=== PATIENT | male | born 1945 | race Caucasian/White ===

== ENCOUNTER → 2016-04-25 | Outpatient (CLI) | payer BC ==
[~2016-04-25] MED LIST: ACET-1256 PO; ADVIN25/60 INH; ALBU1AER9 INH; ASPI81TA28 PO; CHOL1000 PO; CHOL100010 PO; COEN100C3 PO; DICL-201 PO; GUAI1TAB75 PO; IBUP-1050 PO; ISOS30TA3 PO; LEVO500T19 PO; LPT40 PO; MRLP17X PO; MULT-845 PO; OMEG10007 PO; PRED10TA PO; VNTHFA/IN INH
--- NOTE | 2016-04-25 11:12 | DIAGNOSTIC IMAGING REPORT ---
TWO VIEW CHEST CLINICAL HISTORY: COPD. Cough. FINDINGS: PA and lateral chest radiographs are compared to study dated 06/23/2015 and correlated with chest CT dated 10/11/2015. The cardiomediastinal silhouette is unremarkable. There is atherosclerotic calcification of the thoracic aorta. Emphysema and chronic interstitial thickening is similar to previous. There is no evidence of superimposed airspace consolidation or pleural effusion. There is no pneumothorax. The skeletal structures are osteopenic. There are healed right-sided rib fractures. IMPRESSION: Emphysema with no acute cardiopulmonary abnormality. Electronically signed by: Binh Bowie M.D. 04/25/2016 11:10 AM Dictated Date/Time: 04/25/2016 11:08 AM
== END | disposition home or self-care (01) ==
LOC: C.RADBBURG 10:55
PROVIDERS: ATTEND Internal Medicine Pulmonary Disease
DX: J44.9 Chronic obstructive pulmonary disease, unspecified (principal)

== ENCOUNTER → 2016-04-25 | Outpatient (CLI) | payer BC ==
[2016-04-25 16:33] LABS: INFLUENZA A PCR Neg for Influ A (NEG); INFLUENZA B PCR Neg for Influ B (NEG)
== END | disposition home or self-care (01) ==
LOC: C.LAB1850 13:36
PROVIDERS: ATTEND Internal Medicine Pulmonary Disease
DX: R06.02 Shortness of breath (principal)

== ENCOUNTER 2016-04-28 11:51 | Inpatient (IN) | payer BC, OTHER ==
[~2016-04-28] VITALS: Ht 170.2 cm; Wt 80.0 kg
[~2016-04-28 11:51] MED LIST changes: -CHOL1000 PO; -GUAI1TAB75 PO; -LEVO500T19 PO; -MRLP17X PO; -MULT-845 PO; -PRED10TA PO; -VNTHFA/IN INH
[2016-04-28] MEDS ORDERED: ALBUT/IPRATROP 3MG/0.5MG NEB 3 ML VIAL INH ONE (12:15)
--- NOTE | 2016-04-28 12:44 | DIAGNOSTIC IMAGING REPORT ---
CHEST ONE VIEW PORTABLE CLINICAL HISTORY: Atypical chest pain. Difficulty breathing. COMPARISON STUDY: 04/25/2016 FINDINGS: The cardiac and mediastinal contours remain stable. There is superior right hilar retraction. The findings raise the possibility of a prior right upper lobectomy. Please correlate with any history of prior surgery. There is no focal pulmonary consolidation. There are no pleural effusions. IMPRESSION: AP portable study. Stable superior right hilar retraction. No acute parenchymal consolidation Electronically signed by: Andrew Ramos M.D. 04/28/2016 12:42 PM Dictated Date/Time: 04/28/2016 12:37 PM
[2016-04-28 12:48] LABS: BASO % 0.1 %; BASO ABS # 0.01 K/uL (0-0.2); COMPLETE YES; EOS % 0.4 %; IG% 0.7 %; LYMPH ABS # 1.79 K/uL (1.2-3.4); MEAN CELL VOLUME 89.4 fL (80-100); MEAN CORPUSCULAR HEMOGLOBIN 31.3 pg (25-34); MEAN PLATELET VOLUME 9.7 fL (7.4-10.4); MONO % 7.1 %; NEUT % 78.7 %; PLATELET COUNT 250 K/uL (130-400); RED BLOOD COUNT 4.92 M/uL (4.7-6.1); WHITE BLOOD COUNT 13.81 K/uL (4.8-10.8)
[2016-04-28] MEDS ORDERED: GUAI1TAB75 PO (12:49)
[2016-04-28] MEDS ORDERED: PRED10TA PO (12:49)
[2016-04-28] MEDS ORDERED: LEVO500T19 PO (12:49)
[2016-04-28] MEDS ORDERED: VNTHFA/IN INH (12:50)
[2016-04-28] MEDS ORDERED: CHOL1000 PO (12:50)
[2016-04-28 12:52] VITALS: PULSE 68; O2SAT 94
[2016-04-28 12:58] LABS: BLOOD UREA NITROGEN 20 mg/dl (7-18); CALCIUM 9.5 mg/dl (8.5-10.1); CARBON DIOXIDE 28 mmol/L (21-32); CHLORIDE 105 mmol/L (98-107); GLUCOSE 93 mg/dl (70-99); SODIUM 142 mmol/L (136-145)
[2016-04-28 13:05] LABS: CKMB/CK RATIO 1.6 (0-3.0)
[2016-04-28] MEDS ORDERED: METHYLPREDNISOLONE 125 MG VIAL IV STA (14:44)
[2016-04-28] MEDS ORDERED: DOXYCYCLINE HYCLATE 100 MG CAP PO ONE (14:45)
[2016-04-28] MEDS ORDERED: LPT40 PO (15:18)
[2016-04-28] MEDS ORDERED: MRLP17X PO (15:18)
[2016-04-28] MEDS ORDERED: MULT-845 PO (15:18)
[2016-04-28] MEDS ORDERED: ACETAMINOPHEN 325 MG TAB PO PRN (15:30)
[2016-04-28] MEDS ORDERED: ONDANSETRON INJ 2 MG/ML 2 ML VIAL IV PRN (15:30)
[2016-04-28] MEDS ORDERED: ALBUT/IPRATROP 3MG/0.5MG NEB 3 ML VIAL INH PRN (15:45)
[2016-04-28] MEDS ORDERED: LEVALBUTEROL 1.25MG/3ML NEB INH PRN (15:45)
[2016-04-28] MEDS ORDERED: POLYETHYLENE (MIRALAX) 17 GM PACK PO PRN (15:45)
[2016-04-28 15:46] LABS: PROTHROMBIN TIME (PATIENT) 10.7 SECONDS (9.0-12.0)
--- NOTE | 2016-04-28 15:51 | History and Physical ---
History & Physical Date & Time of Service: Apr 28, 2016 at 15:19 Chief Complaint: Breathing/Pneumonia Primary Care Physician: Yaw Quiroz M.D.(CRISTIAN) History of Present Illness Source: patient, spouse ( at bedside), clinic records This is a 70 year old male with PMH of asthma, COPD, history of right sided empyema s/p resection in 1992, CAD, hx TIA, and other problems listed below who presents to the ED for cough and SOB. Patient states symptoms started 1 week ago with a head cold which drained to his lungs and is now having increased cough with yellow/ brown sputum and increased SOB from baseline. [place] [facility] [place] Jolanta Caballero PA-C on 04/23 and started on Azithromycin and prednisone taper. Patient was not feeling better on that regimen so was changed to Levaquin, which he has been taking since evening without relief. Patient reports SOB is worse when he lays flat and was having paroxysmal nocturnal dyspnea. For past few days he had to sleep upright on the cough. He also has increased INGRAM from baseline. Yesterday had chest pain only during cough. He denies fever, chills, diffuse myalgias, dizziness, nausea , vomiting, abdominal pain, diarrhea, urinary change. No recent travel or sick contact. Patient is not on home oxygen. He was hypoxic to 88% on RA in ER and improved on 2 liters nasal cannula. He was treated with Duoneb, Solu-medrol, and doxycycline in ER. 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 Status: Chronic (5) Family history: Hypertension Status: Chronic (6) Pulmonary nodule Status: Chronic (7) Syncope Status: Resolved (8) TIA (transient ischemic attack) Permanent Comment: 2004 Status: Chronic (9) Zenkers diverticulum Permanent Comment: s/p repair Status: Chronic Surgical Problems: (1) H/O eye surgery Status: Chronic (2) H/O hernia repair Status: Chronic (3) H/O prostate biopsy Status: Chronic (4) S/P bronchoscopy Status: Chronic (5) S/P knee replacement Permanent Comment: right Status: Chronic (6) S/P lobectomy of lung Permanent Comment: 1992 for empyema Status: Chronic (7) S/P partial colectomy Permanent Comment: at [facility] [place] for recurrent diverticulitis Status: Chronic Family History Hypertension Social History Smoking Status: Former Smoker Alcohol Use: none Drug Use: none Marital Status: Housing status: lives with family Occupational Status: employed Immunizations History of Influenza Vaccine: No Influenza Vaccine Date: Jan 14, 2007 History of Tetanus Vaccine?: Yes History of Pneumococcal: Yes History of Hepatitis B Vaccine: No Multi-Drug Resistant Organisms History of MDRO: No Allergies Coded Allergies: Hydrocodone (Verified Allergy, Mild, RASH, HIVES, 07/18/15) Home Medications Scheduled Aspirin (Aspirin Ec), 243 MG PO DAILY Atorvastatin (Atorvastatin Calcium), 40 MG PO HS Cholecalciferol (Vitamin D3), 1,000 UNITS PO BID Coenzyme Q10 (Ubidecarenone) (Co Q-10), 100 MG PO DAILY Fish Oil ([place]-3), 2 CAP PO QAM Fluticasone Prop/Salmeterol (Advair Diskus 250/50 60 Dose), 1 PUFFS INH BID Levofloxacin (Levaquin), 500 MG PO DAILY Multiple Vitamins W/ Minerals (Centrum Silver Adult 50+), 1 TAB PO DAILY Prednisone (Prednisone), 10 MG PO UD Scheduled PRN Albuterol Hfa (Ventolin Hfa), 2 PUFFS INH Q6H PRN for SOB/Wheezing Polyethylene (Miralax), 17 GM PO DAILY PRN for Constipation Review of Systems Ten point review of systems performed with pertinent positives and negatives noted in HPI. Physical Exam Vital Signs Date Time Temp Pulse Resp B/P Pulse Ox O2 Delivery O2 Flow Rate FiO2 04/28/16 14:41 92 20 88 Room Air 04/28/16 14:00 88 20 126/65 91 Room Air 04/28/16 13:04 65 04/28/16 12:52 68 14 94 Room Air 04/28/16 12:17 86 94 Room Air 04/28/16 11:57 36.8 73 20 152/89 93 Room Air General Appearance: WD/WN, no apparent distress, + pertinent finding (pleasant alert 70 year old male, not in distress, at bedside) Head: normocephalic, atraumatic Eyes: normal inspection, PERRL, EOMI ENT: normal ENT inspection, hearing grossly normal Neck: supple, trachea midline Respiratory/Chest: no respiratory distress, no accessory muscle use, + crackles , + pertinent finding (mild wheezing left upper lung field, course breath sounds , saturating well on 2L NC) Cardiovascular: regular rate, rhythm, no murmur Abdomen/GI: normal bowel sounds, non tender, soft Extremities/Musculoskelatal: normal inspection, normal capillary refill, no pedal edema Neurologic/Psych: alert, normal mood/affect, oriented x 3, + pertinent finding (grossly nonfocal) Skin: normal color, warm/dry Diagnostics Laboratory Results Results Past 24 Hours Test 04/28/16 12:23 04/28/16 12:32 Range/Units White Blood Count 13.81 4.8-10.8 K/uL Red Blood Count 4.92 4.7-6.1 M/uL Hemoglobin 15.4 14.0-18.0 g/dL Hematocrit 44.0 42-52 % Mean Corpuscular Volume 89.4 80-100 fL Mean Corpuscular Hemoglobin 31.3 25-34 pg Mean Corpuscular Hemoglobin Concent 35.0 32-36 g/dl Platelet Count 250 130-400 K/uL Mean Platelet Volume 9.7 7.4-10.4 fL Neutrophils (%) (Auto) 78.7 % Lymphocytes (%) (Auto) 13.0 % Monocytes (%) (Auto) 7.1 % Eosinophils (%) (Auto) 0.4 % Basophils (%) (Auto) 0.1 % Neutrophils # (Auto) 10.89 1.4-6.5 K/uL Lymphocytes # (Auto) 1.79 1.2-3.4 K/uL Monocytes # (Auto) 0.98 0.11-0.59 K/uL Eosinophils # (Auto) 0.05 0-0.5 K/uL Basophils # (Auto) 0.01 0-0.2 K/uL RDW Standard Deviation 44.1 36.4-46.3 fL RDW Coefficient of Variation 13.5 11.5-14.5 % Immature Granulocyte % (Auto) 0.7 % Immature Granulocyte # (Auto) 0.09 0.00-0.02 K/uL Sodium Level 142 136-145 mmol/L Potassium Level 4.0 3.5-5.1 mmol/L Chloride Level 105 98-107 mmol/L Carbon Dioxide Level 28 21-32 mmol/L Anion Gap 9.0 3-11 mmol/L Blood Urea Nitrogen 20 7-18 mg/dl Creatinine 1.00 0.60-1.40 mg/dl Est Creatinine Clear Calc Drug Dose 70.7 ml/min Estimated GFR () 88.6 Estimated GFR (Non- 76.5 BUN/Creatinine Ratio 20.0 10-20 Random Glucose 93 70-99 mg/dl Calcium Level 9.5 8.5-10.1 mg/dl Total Creatine Kinase 69 39-308 U/L Creatine Kinase MB 1.1 0.5-3.6 ng/ml Creatine Kinase MB Ratio 1.6 0-3.0 Troponin I < 0.015 0-0.045 ng/ml Pro-B-Type Natriuretic Peptide 62 0-900 pg/ml Bedside Lactic Acid Venous 1.27 0.90-1.70 mmol/L Microbiology Results 04/28/16 Blood Culture, Received Pending 04/28/16 Blood Culture, Received Pending Diagnostic Radiology CHEST ONE VIEW PORTABLE CLINICAL HISTORY: Atypical chest pain. Difficulty breathing. COMPARISON STUDY: 04/25/2016 FINDINGS: The cardiac and mediastinal contours remain stable. There is superior right hilar retraction. The findings raise the possibility of a prior right upper lobectomy. Please correlate with any history of prior surgery. There is no focal pulmonary consolidation. There are no pleural effusions. IMPRESSION: AP portable study. Stable superior right hilar retraction. No acute parenchymal consolidation EKG NSR, 66 bpm, no acute ischemic findings Impression Assessment and Plan ACUTE HYPOXIC RESPIRATORY FAILURE Secondary to COPD exacerbation Failed outpatient treatment with PO prednisone, Azithromycin, and Levaquin Was saturating 88% on RA (not on home O2), now improved on 2L NC CXR shows no consolidation or pulmonary edema; Pro-BNP WNL Treated with Duoneb, Solu-Medrol, and doxycycline in ER Blood cultures pending Check sputum culture and influenza PCR Will treat with empiric Zosyn, IV Solu-Medrol 40 MG TID, Duonebs QID and Xopenex PRN Continue Advair- advised to use on schedule rather than PRN Continue supplemental O2 per protocol If no improvement would consider CT scan and pulm consult ([facility]) CAD June 2015 showed severe CAD- medical management recommended Stable; no angina; troponin negative EKG- no evidence for ischemia Continue aspirin, statin DYSLIPIDEMIA Continue statin DVT PROPHYLAXIS Lovenox SQ DISPOSITION Followed with Dr. Randall who is retired; he has future appt with Dr. Quiroz in August 2016 [place] [facility] [place] [facility] [place] (Dr. Nickerson) Patient seen in collaboration with Dr. Whitman. Please see his addendum. Attending Note: Patient is a 70 yr old male with PMH of COPD, CAD, TIA, HLP presents with history of worsening productive cough and SOB since 1 week duration. Patient failed to respond to oral antibiotics and prednisone prescribed by his PCP. He states SOB is worse while lying down but denies any fever, chills, PND or pedal edema. BNP wnl. Also associated with chest pain on coughing. While in ED he was saturating at 88% on RA and currently 94 % on 2l NC. Physical Exam: Vitals signs as noted above General Appearance:Moderately built and nourished, no apparent distress Head: normocephalic, Atraumatic Eyes: normal inspection, EOMI, PERRLA, Anicteric Neck: supple, no JVD, Trachea midline Respiratory/Chest: Coarse breath sounds, b/l + crackles, minimal wheezing. No accessory muscle use Cardiovascular: S1, S2, NSR, Tachycardia, No murmur Abdomen/GI:Soft, Non tender, Bowel sounds present Extremities/Musculoskeletal:normal inspection, no calf tenderness, cyanosis, clubbing, edema Neurologic/Psych:AAOX3, grossly no focal neurological deficits Skin:normal color,warm Assessment and Plan: Acute Respiratory failure with hypoxia/hypercapnia Secondary to COPD Exacerbation Admit as inpatient Patient failed outpatient steroid and antibiotic therapy ( Azithromycin and Levaquin) CXR: no signs of consolidation Start on broad spectrum IV antibiotics IV solumedrol, bronchodilators Get Blood/sputum culture and gram strain Oxygen support per protocol Repeat labs in AM Will consider CT chest if no improvement I personally reviewed the record. Patient is interviewed and examined at bedside. Patient's care is coordinated with Bhargavi Durand PA-C. Please refer to the documentation above for details of patient's presentation and for discussion of other issues.
[2016-04-28] MEDS ORDERED: PIPERACILL/TAZOBAC CONSULT ACTIVE PRN (16:00)
[2016-04-28] MEDS ORDERED: PIPERACILL/TAZOBAC IV 3.375 GM in DEXTROSE 5% 100ML IV ONE (17:30)
[2016-04-28 17:59] LABS: INFLUENZA A PCR Neg for Influ A (NEG); INFLUENZA B PCR Neg for Influ B (NEG)
[2016-04-28 18:59] VITALS: Ht 170.2 cm; Wt 80.0 kg
--- NOTE | 2016-04-28 19:15 | EMERGENCY ROOM VISIT NOTE ---
History Report prepared by Noe: Jean Carlos Rajan Under the Supervision of: Dr. Lamberto Wells M.D. First contact with patient: 12:00 Chief Complaint: RESPIRATORY PROBLEMS Stated Complaint: BREATHING/PNEUMONIA Nursing Triage Summary: pt reports cough , congestion with sob with yellow mucus production that started 5 days ago , pt reports abx and prednisone started Fri pt reports pain in R lung with previous Lung operation 1992 History of Present Illness The patient is a 70 year old male who presents to the Emergency Room with complaints of persistent shortness of breath for the past five days. The patient 's symptoms are worse when he is laying down and with exertion. The patient also has congestion and a cough that produces yellow mucous. The patient experiences chest pain with heavy coughing, but does not have any chest pain at rest. He has not had any fevers. He also denies any syncope, abdominal pain, nausea, or vomiting. He was started on Levaquin 48 hours ago. He has been on Prednisone for one week. The patient had lung surgery in 1992, and has been prone to respiratory infections since. He has not had any recent surgeries or travel. The patient denies any history of blood clots. Source of History: patient Onset: five days ago Position: other (respiratory) Quality: other (short of breath) Timing: other (persistent) Modifying Factors (Worsening): exertion, other (laying down) Associated Symptoms: + cough, No abdominal pain, No chest pain, No fevers, No nausea, No vomiting Review of Systems See HPI for pertinent positives & negatives. A total of 10 systems reviewed and were otherwise negative. Past Medical & Surgical Medical Problems: (1) BPH (benign prostatic hypertrophy) (2) CAD (coronary artery disease) (3) Dyslipidemia (4) Empyema of lung (5) Family history: Hypertension (6) Pulmonary nodule (7) Right Knee DJD (8) Syncope (9) TIA (transient ischemic attack) (10) Zenkers diverticulum Surgical Problems: (1) H/O eye surgery (2) H/O hernia repair (3) H/O prostate biopsy (4) S/P bronchoscopy (5) S/P knee replacement (6) S/P lobectomy of lung (7) S/P partial colectomy Family History Hypertension Social History Smoking Status: Former Smoker Alcohol Use: none Drug Use: none Marital Status: Housing Status: lives with family Occupation Status: employed Current/Historical Medications Scheduled Aspirin (Aspirin Ec), 243 MG PO DAILY Atorvastatin (Atorvastatin Calcium), 40 MG PO HS Cholecalciferol (Vitamin D3), 1,000 UNITS PO BID Coenzyme Q10 (Ubidecarenone) (Co Q-10), 100 MG PO DAILY Fish Oil (Willet-3), 2 CAP PO QAM Fluticasone Prop/Salmeterol (Advair Diskus 250/50 60 Dose), 1 PUFFS INH BID Levofloxacin (Levaquin), 500 MG PO DAILY Multiple Vitamins W/ Minerals (Centrum Silver Adult 50+), 1 TAB PO DAILY Prednisone (Prednisone), 10 MG PO UD Scheduled PRN Albuterol Hfa (Ventolin Hfa), 2 PUFFS INH Q6H PRN for SOB/Wheezing Polyethylene (Miralax), 17 GM PO DAILY PRN for Constipation Allergies Coded Allergies: Hydrocodone (Verified Allergy, Mild, RASH, HIVES, 07/18/15) Physical Exam Vital Signs Date Time Temp Pulse Resp B/P Pulse Ox O2 Delivery O2 Flow Rate FiO2 04/28/16 14:41 92 20 88 Room Air 04/28/16 14:00 88 20 126/65 91 Room Air 04/28/16 13:04 65 04/28/16 12:52 68 14 94 Room Air 04/28/16 12:17 86 94 Room Air 04/28/16 11:57 36.8 73 20 152/89 93 Room Air Physical Exam GENERAL: Patient is uncomfortable appearing in mild distress. HEENT: No acute trauma, normocephalic atraumatic, mucous membranes moist, no nasal congestion, no scleral icterus. NECK: No stridor, no adenopathy, no meningismus, trachea is midline. LUNGS: Mild dyspnea. Diffuse crackles and wheezing in all lung interiano. HEART: Regular rate and rhythm. No murmurs, rubs, gallops appreciated. ABDOMEN: Soft, nontender, bowel sounds positive, no masses appreciated, no peritonitis. BACK: No midline tenderness, no CVA tenderness EXTREMITIES: Normal motion all extremities, no cyanosis, no edema. NEUROLOGIC: Alert and oriented, no acute motor or sensory deficits, no focal weakness, cranial nerves grossly intact. SKIN: No rash, no jaundice, no diaphoresis. Medical Decision & Procedures ER Provider Diagnostic Interpretation: X ray results are stated below per my interpretation and the radiologist's interpretation. CHEST ONE VIEW PORTABLE CLINICAL HISTORY: Atypical chest pain. Difficulty breathing. COMPARISON STUDY: 04/25/2016 FINDINGS: The cardiac and mediastinal contours remain stable. There is superior right hilar retraction. The findings raise the possibility of a prior right upper lobectomy. Please correlate with any history of prior surgery. There is no focal pulmonary consolidation. There are no pleural effusions. IMPRESSION: AP portable study. Stable superior right hilar retraction. No acute parenchymal consolidation Electronically signed by: Andrew Ramos M.D. 04/28/2016 12:42 PM Dictated Date/Time: 04/28/2016 12:37 PM Laboratory Results 04/28/16 12:23 Red Blood Count 4.92, Mean Corpuscular Volume 89.4, Mean Corpuscular Hemoglobin 31.3, Mean Corpuscular Hemoglobin Concent 35.0, Mean Platelet Volume 9.7, Neutrophils (%) (Auto) 78.7, Lymphocytes (%) (Auto) 13.0, Monocytes (%) (Auto) 7.1, Eosinophils (%) (Auto) 0.4, Basophils (%) (Auto) 0.1, Neutrophils # (Auto) 10.89, Lymphocytes # (Auto) 1.79, Monocytes # (Auto) 0.98, Eosinophils # (Auto) 0.05, Basophils # (Auto) 0.01 04/28/16 12:23 Test 04/28/16 12:23 04/28/16 12:32 White Blood Count 13.81 K/uL (4.8-10.8) Red Blood Count 4.92 M/uL (4.7-6.1) Hemoglobin 15.4 g/dL (14.0-18.0) Hematocrit 44.0 % (42-52) Mean Corpuscular Volume 89.4 fL (80-100) Mean Corpuscular Hemoglobin 31.3 pg (25-34) Mean Corpuscular Hemoglobin Concent 35.0 g/dl (32-36) Platelet Count 250 K/uL (130-400) Mean Platelet Volume 9.7 fL (7.4-10.4) Neutrophils (%) (Auto) 78.7 % Lymphocytes (%) (Auto) 13.0 % Monocytes (%) (Auto) 7.1 % Eosinophils (%) (Auto) 0.4 % Basophils (%) (Auto) 0.1 % Neutrophils # (Auto) 10.89 K/uL (1.4-6.5) Lymphocytes # (Auto) 1.79 K/uL (1.2-3.4) Monocytes # (Auto) 0.98 K/uL (0.11-0.59) Eosinophils # (Auto) 0.05 K/uL (0-0.5) Basophils # (Auto) 0.01 K/uL (0-0.2) RDW Standard Deviation 44.1 fL (36.4-46.3) RDW Coefficient of Variation 13.5 % (11.5-14.5) Immature Granulocyte % (Auto) 0.7 % Immature Granulocyte # (Auto) 0.09 K/uL (0.00-0.02) Prothrombin Time 10.7 SECONDS (9.0-12.0) Prothromb Time International Ratio 1.0 (0.9-1.1) Activated Partial Thromboplast Time 24.7 SECONDS (21.0-31.0) Partial Thromboplastin Ratio 1.0 Anion Gap 9.0 mmol/L (3-11) Est Creatinine Clear Calc Drug Dose 70.7 ml/min Estimated GFR () 88.6 Estimated GFR (Non- 76.5 BUN/Creatinine Ratio 20.0 (10-20) Calcium Level 9.5 mg/dl (8.5-10.1) Total Creatine Kinase 69 U/L (39-308) Creatine Kinase MB 1.1 ng/ml (0.5-3.6) Creatine Kinase MB Ratio 1.6 (0-3.0) Troponin I < 0.015 ng/ml (0-0.045) Pro-B-Type Natriuretic Peptide 62 pg/ml (0-900) Bedside Lactic Acid Venous 1.27 mmol/L (0.90-1.70) Laboratory results as reviewed by me. Medications Administered Medications (Trade) Dose Ordered Sig/Timothy Route Start Time Stop Time Status Last Admin Dose Admin Albuterol/ Ipratropium (Duoneb) 12 ml ONE ONCE INH 04/28/16 12:15 04/28/16 12:16 DC 04/28/16 12:52 12 ML Doxycycline Hyclate (Vibramycin Cap) 100 mg ONE ONCE PO 04/28/16 14:45 04/28/16 14:46 DC 04/28/16 14:51 100 MG Methylprednisolone Sodium Succinate (Solu-Medrol IV) 80 mg NOW STAT IV 04/28/16 14:44 04/28/16 14:46 DC 04/28/16 14:51 80 MG ECG Indication: SOB/dyspnea Rate (beats per minute): 66 Rhythm: normal sinus Findings: no acute ischemic change, no ectopy ED Course 1205: The patient was evaluated in room A2. A complete history and physical exam was performed. 1215: DuoNeb 12 ml INH. 1325: Checked on the patient. He and his are deciding if he should stay in the hospital or go home. 1350: The patient needs more time to decide if he will stay. 1444: Discussed the case with Bhargavi Durand PA-C, [facility]. The patient will be evaluated. 1444: Solu-Medrol 80 mg IV. 1445: Vibramycin cap 100 mg PO. Medical Decision Differential: Infectious, Reactive Airway Disease, Pneumonia, Pneumothorax, COPD , CHF, ACS, Pulmonary Embolism, MSK, GI, Dissection, amongst other etiologies entertained. 70 yr old male arrives with worsening SHOB and cough over last week despite adequate dosing of prednisone and Levaquin. Exam quite poor though oxygenating alright initially. Given hour long neb with mild improvement in breathing though O2 sats starting to drop. He is not septic and I do not feel there is acute bacteremia, however with his history will add on doxycycline. Symptoms consistent with previous episodes of same. With exam and this I do not feel that CT PE necessary at this time as he has had previous CT PEs when same symptoms which were negative. Patient will come in to medicine service and stable at that time. Consults Time Called: 1435 Consulting Physician: Bhargavi Durand PA-C, [facility] Returned Call: [phone]: Discussed the case with Bhargavi Durand PA-C, [facility]. The patient will be evaluated. Impression Primary Impression: Failure of outpatient treatment Additional Impression: Acute bronchitis Scribe Attestation The scribe's documentation has been prepared under my direction and personally reviewed by me in its entirety. I confirm that the note above accurately reflects all work, treatment, procedures, and medical decision making performed by me. Departure Information Dispostion Being Evaluated By Hospitalist Referrals Yaw Quiroz M.D.(CRISTIAN) (PCP) Patient Instructions [facility] Problem Qualifiers Additional Impression: Acute bronchitis Bronchitis organism: unspecified organism Qualified Codes: J20.9 - Acute bronchitis, unspecified
[2016-04-28] MEDS: BUDESONIDE 0.5 MG/2 ML VIAL (PULMICORT) INH SCH (19:42)
[2016-04-28] MEDS: ALBUT/IPRATROP 3MG/0.5MG NEB 3 ML VIAL INH SCH (19:42)
[2016-04-28 19:43] VITALS: PULSE 96; O2SAT 95
[2016-04-28] MEDS: CHOLECALCIFEROL 1000 INTER.UNIT TAB PO SCH (20:57)
[2016-04-28] MEDS: ATORVASTATIN 40 MG TAB PO SCH (20:57)
[2016-04-28] MEDS ORDERED: PIPERACILL/TAZOBAC IV 3.375 GM in DEXTROSE 5% 100ML 100 ML IV SCH (22:00)
[2016-04-28] MEDS: ENOXAPARIN 40 MG/0.4 ML SYR SQ SCH (22:25)
[2016-04-28] MEDS: PIPERACILL/TAZOBAC IV 3.375 GM in DEXTROSE 5% 100ML IV SCH (22:26)
[2016-04-28] MEDS: METHYLPREDNISOLONE IV 40 MG in SYRINGE 0 ML IV SCH (22:26)
[2016-04-29] VITALS (8 sets, daily range): BP systolic 105–133; BP diastolic 63–70; PULSE 81–99; TEMP 36.3–36.5; O2SAT 91–96
[2016-04-29] MEDS: PIPERACILL/TAZOBAC IV 3.375 GM in DEXTROSE 5% 100ML IV SCH ×3 (05:42→21:48)
[2016-04-29] MEDS: METHYLPREDNISOLONE IV 40 MG in SYRINGE 0 ML IV SCH ×3 (05:42→21:48)
[2016-04-29] MEDS: BUDESONIDE 0.5 MG/2 ML VIAL (PULMICORT) INH SCH ×2 (07:01→19:55)
[2016-04-29] MEDS: ALBUT/IPRATROP 3MG/0.5MG NEB 3 ML VIAL INH SCH ×4 (07:01→19:55)
[2016-04-29 08:46] LABS: COMPLETE YES; HEMATOCRIT 41.7 % (42-52); IG% 0.6 %; LYMPH ABS # 1.07 K/uL (1.2-3.4); MEAN CELL VOLUME 89.5 fL (80-100); MEAN CORPUSCULAR HEMOGLOBIN 31.8 pg (25-34); MEAN CORPUSCULAR HGB CONC 35.5 g/dl (32-36); MONO % 2.1 %; NEUT % 90.3 %; PLATELET COUNT 271 K/uL (130-400); RED BLOOD COUNT 4.66 M/uL (4.7-6.1); WHITE BLOOD COUNT 15.38 K/uL (4.8-10.8)
[2016-04-29] MEDS: OMEGA-3 (PURIFIED FISH OIL) 1 GM CAP PO SCH (08:49)
[2016-04-29] MEDS: CHOLECALCIFEROL 1000 INTER.UNIT TAB PO SCH ×2 (08:49→20:45)
[2016-04-29] MEDS: ASPIRIN 81 MG ECTAB PO SCH (08:49)
[2016-04-29] MEDS ORDERED: NON-FORMULARY MEDICATION (Coenzyme Q10 (Ubidecarenone) (Co Q-10) 100 MG) PO SCH (09:00)
[2016-04-29 09:12] LABS: BUN/CREATININE RATIO 24.5 (10-20); CALCIUM 9.4 mg/dl (8.5-10.1); CREATININE 1.1 mg/dl (0.60-1.40); POTASSIUM 3.9 mmol/L (3.5-5.1)
--- NOTE | 2016-04-29 15:12 | Progress Note ---
Internal Med Progress Note Date of Service: Apr 29, 2016. Provider Documentation: SUBJECTIVE: The patient was seen and examined Feels a lot better since admission Minimal SOB at rest No fever,chills OBJECTIVE: Vital Signs-as noted below Exam: General-Minimal distress at rest Eyes-normal ENT-normal Neck-supple Lungs-Decreased breath sound bilaterally ,minimal wheezing and minimal crackles at the bases Heart-Regular,no murmur Abdomen-Benign no masses,bowel sound present Extremities-No edema Neuro-AAOx3 Lab data as noted below. ASSESSMENT & PLAN: ACUTE HYPOXIC RESPIRATORY FAILURE SOB,Excessive use of Accessory muscles,Low saturation 88% on RA,inability to converse on presentation Secondary to COPD exacerbation Failed outpatient treatment with PO prednisone, Azithromycin, and Levaquin Was saturating 88% on RA (not on home O2), now improved on 2L NC CXR shows no consolidation or pulmonary edema; Pro-BNP WNL IV Solumedrol,Nebs and Oxygen administration Blood cultures ,Check sputum culture and Influenza PCR-negative IV Zosyn for now Continue Advair- advised to use on schedule rather than PRN Pulmonary consult-patient requested CAD June 2015 showed severe CAD- medical management recommended Stable; no angina; troponin negative EKG- no evidence for ischemia Continue aspirin, statin DYSLIPIDEMIA Continue statin DVT PROPHYLAXIS Lovenox SQ DISPOSITION Followed with Dr. Randall who is retired; he has future appt with Dr. Quiroz in August 2016 F/w [facility]m and [facility] [place] (Dr. Nickerson) Vital Signs: Date Time Temp Pulse Resp B/P Pulse Ox O2 Delivery O2 Flow Rate FiO2 04/29/16 14:41 36.5 81 20 127/63 91 04/29/16 11:14 99 16 95 Room Air 04/29/16 08:00 36.3 81 20 105/70 95 04/29/16 07:28 Room Air 04/29/16 07:01 94 16 95 Room Air 04/29/16 00:00 Room Air 2.0 04/28/16 19:43 96 16 95 Nasal Cannula 2.0 04/28/16 18:59 Nasal Cannula 2.0 Lab Results: Results Past 24 Hours Test 04/28/16 16:16 04/29/16 07:39 Range/Units Influenza Type A (RT-PCR) Neg for Influ A NEG Influenza Type B (RT-PCR) Neg for Influ B NEG White Blood Count 15.38 4.8-10.8 K/uL Red Blood Count 4.66 4.7-6.1 M/uL Hemoglobin 14.8 14.0-18.0 g/dL Hematocrit 41.7 42-52 % Mean Corpuscular Volume 89.5 80-100 fL Mean Corpuscular Hemoglobin 31.8 25-34 pg Mean Corpuscular Hemoglobin Concent 35.5 32-36 g/dl Platelet Count 271 130-400 K/uL Mean Platelet Volume 10.0 7.4-10.4 fL Neutrophils (%) (Auto) 90.3 % Lymphocytes (%) (Auto) 7.0 % Monocytes (%) (Auto) 2.1 % Eosinophils (%) (Auto) 0.0 % Basophils (%) (Auto) 0.0 % Neutrophils # (Auto) 13.90 1.4-6.5 K/uL Lymphocytes # (Auto) 1.07 1.2-3.4 K/uL Monocytes # (Auto) 0.32 0.11-0.59 K/uL Eosinophils # (Auto) 0.00 0-0.5 K/uL Basophils # (Auto) 0.00 0-0.2 K/uL RDW Standard Deviation 43.7 36.4-46.3 fL RDW Coefficient of Variation 13.4 11.5-14.5 % Immature Granulocyte % (Auto) 0.6 % Immature Granulocyte # (Auto) 0.09 0.00-0.02 K/uL Sodium Level 141 136-145 mmol/L Potassium Level 3.9 3.5-5.1 mmol/L Chloride Level 102 98-107 mmol/L Carbon Dioxide Level 22 21-32 mmol/L Anion Gap 17.0 3-11 mmol/L Blood Urea Nitrogen 27 7-18 mg/dl Creatinine 1.10 0.60-1.40 mg/dl Est Creatinine Clear Calc Drug Dose 64.2 ml/min Estimated GFR () 79.0 Estimated GFR (Non- 68.1 BUN/Creatinine Ratio 24.5 10-20 Random Glucose 126 70-99 mg/dl Calcium Level 9.4 8.5-10.1 mg/dl Microbiology Results 04/28/16 MRSA DNA Surveillance Screen - Final, Complete Specimen Negative for MRSA by DNA Probe
[2016-04-29] MEDS: ATORVASTATIN 40 MG TAB PO SCH (20:44)
[2016-04-29] MEDS: ENOXAPARIN 40 MG/0.4 ML SYR SQ SCH (20:45)
[2016-04-30] MEDS: PIPERACILL/TAZOBAC IV 3.375 GM in DEXTROSE 5% 100ML IV SCH (05:46)
[2016-04-30] MEDS: METHYLPREDNISOLONE IV 40 MG in SYRINGE 0 ML IV SCH (05:46)
[2016-04-30 06:00] LABS: BASO % 0.1 %; BASO ABS # 0.01 K/uL (0-0.2); COMPLETE YES; HEMATOCRIT 41.4 % (42-52); IG% 0.8 %; LYMPH ABS # 1.11 K/uL (1.2-3.4); MEAN CORPUSCULAR HGB CONC 34.8 g/dl (32-36); MONO % 3.1 %; PLATELET COUNT 264 K/uL (130-400); RED BLOOD COUNT 4.65 M/uL (4.7-6.1); WHITE BLOOD COUNT 18.62 K/uL (4.8-10.8)
[2016-04-30 06:31] LABS: BUN/CREATININE RATIO 26.5 (10-20); CREATININE 1.1 mg/dl (0.60-1.40); POTASSIUM 4.4 mmol/L (3.5-5.1)
[2016-04-30 07:05] VITALS: PULSE 84; O2SAT 97
[2016-04-30] MEDS: ALBUT/IPRATROP 3MG/0.5MG NEB 3 ML VIAL INH SCH ×3 (07:05→15:12)
[2016-04-30] MEDS: BUDESONIDE 0.5 MG/2 ML VIAL (PULMICORT) INH SCH (07:05)
[2016-04-30] MEDS: ASPIRIN 81 MG ECTAB PO SCH (07:39)
[2016-04-30] MEDS: OMEGA-3 (PURIFIED FISH OIL) 1 GM CAP PO SCH (07:39)
[2016-04-30] MEDS: CHOLECALCIFEROL 1000 INTER.UNIT TAB PO SCH (07:39)
[2016-04-30 08:27] VITALS: BP 145/69; PULSE 73; TEMP 36.4; O2SAT 93
[2016-04-30 11:12] VITALS: PULSE 77; O2SAT 95
--- NOTE | 2016-04-30 11:28 | Pulmonary Consultation ---
History General Date of Service: Apr 30, 2016. Stated Complaint: COUGH HPI The patient is a 70 year old male who presents to [facility] with complaints of COUGH. The patient's primary care provider is Yaw Quiroz M.D.(CRISTIAN). 70-yo male admitted 04/28/16 with CC cough and dyspnea. Prior records were reviewed. PMHx includes: right-sided empyema status post sleeve resection, chronic bronchitic asthma, Zenker's diverticulum status post repair and revision , pneumonia and pneumonitis, coronary artery disease, LLL pulmonary nodule ( stable 12/2007-10/2015), h/o ciro biopsy + fungal and bacterial smear (1997) on bronchoscopy 2004. Patient had been seen in the outpatient setting [employer]LYST with symptoms of cough, dyspnea, and wheeze. He was treated with antibiotic (azithromycin and levofloxacin) as well as Solumol and prednisone taper. Despite these modalities , he presented to [facility] with persistent and progressive symptoms. On evaluation vital signs notable for hypoxia: 88% RA improved on 2LPM. ProBNP: 62 , Thomas: negative. WBC: 13.81 on steroids. Influenza: negative. CXR describes stable superior right hilar retraction without infiltrate or signs of failure/ edema. He was admitted and received bronchodilators, steroid, and antibiotic ( current day #2 pip-tazo) with clinical improvement. Patient is a life-long [place] resident. 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 He denies prior service in the . He is a former smoker: 1ppd x 15-years, quit 1991. He lives with his in an older farm home. No mold or mildew. Heat: oil. They have several outdoor cats. Historian: patient Review of Systems Constitutional: denies: chills, fever Eyes: reports: no symptoms ENT: reports: nasal congestion, sore throat Cardiovascular: denies: chest pain, edema, palpitations Respiratory: reports: INGRAM, cough, shortness of breath, wheezing, denies: hemoptysis, stridor Gastrointestinal: reports: no symptoms Integumentary: reports: no symptoms, denies: rash Past Medical History Past Medical History: 1. Right-Sided Emphysema s/p sleeve resection - Right - 1992 2. Chronic Bronchitic Asthma 3. Large Zenkers Diverticulum s/p repair 4. Pneumonia 5. Coronary Artery Disease 6. Left Lower Lobe pulmonary (stable 12/2007-10/2015) 7. Bronchial Stenosis - Right 8. Diverticulosis s/p partial colectomy 9. Hypertension 10. Hyperlipidemia 11. Renal Cyst 12. Chronic Prostatitis 13. RUL pneumonitis Past Surgical History: 1. Bronchoscopy 2. Eye Surgery 3. Right thoracotomy with right lobectomy - Sleeve resection 4. Repair right inguinal hernia 5. Partial colectomy 6. Repair and revision of zenkers diverticulum 7. Prostate Biopsy 8. Right knee replacement Family History FH: CAD (coronary artery disease) MOTHER FH: colon cancer FATHER Hypertension Parent: Cancer (father) Social History Hx Tobacco Use In Past Year?: No (QUIT IN 1991) Smoking Status: Former Smoker Drug Use: none Marital status: Housing status: lives with family Occupational Status: employed Immunizations History of Influenza Vaccine: No Influenza Vaccine Date: Jan 14, 2007 History of Tetanus Vaccine?: Yes History of Pneumococcal: Yes History of Hepatitis B Vaccine: No History of MDRO History of MDRO: No Allergies Coded Allergies: Hydrocodone (Verified Allergy, Mild, RASH, HIVES, 07/18/15) Current Medications Reported Home Medications Medications Dose Route/Sig Max Daily Dose Days Date Category Dose Instructions Atorvastatin Calcium (Atorvastatin) 40 Mg Tab 40 Mg PO HS 04/28/16 Reported Miralax (Polyethylene) 17 Gm Pow 17 Gm PO DAILY PRN 04/28/16 Reported Centrum Silver Adult 50+ (Multiple Vitamins W/ Minerals) 1 Tab Tab 1 Tab PO DAILY 04/28/16 Reported Vitamin D3 (Cholecalciferol) 1,000 Unit Tab 1,000 Units PO BID 90 04/28/16 Reported Ventolin Hfa (Albuterol) 200 Puffs/[id number] Mcg Aers 2 Puffs INH Q6H PRN 04/28/16 Reported Prednisone 10 Mg Tab 10 Mg PO UD 04/28/16 Reported TAPERED DOSE. CURRENTLY TAKING 40MG DAILY X2 DAYS STARTING 04/28/16 Levaquin (Levofloxacin) 500 Mg Tab 500 Mg PO DAILY 10 04/28/16 Reported STARTED 04/25/16 Advair Diskus 250/50 60 Dose (Fluticasone Prop/Salmeterol) 1 Ea Aerp 1 Puffs INH BID 90 06/28/15 Reported Aspirin Ec (Aspirin) 81 Mg Tab 243 Mg PO DAILY 06/16/15 Reported 3 TABLET DOSE Co Q-10 (Coenzyme Q10 (Ubidecarenone)) 100 Mg Cap 100 Mg PO DAILY 06/03/13 Reported [place]-3 (Fish Oil) 1 Ea Cap 2 Cap PO QAM 06/03/13 Reported Physical Physical Exam Vital Signs: Date Time Temp Pulse Resp B/P Pulse Ox O2 Delivery O2 Flow Rate FiO2 04/30/16 08:27 36.4 73 20 145/69 93 04/30/16 08:00 Room Air 04/30/16 07:05 84 16 97 Room Air 04/30/16 01:14 Room Air 04/29/16 23:37 36.3 92 20 133/68 96 Room Air 04/29/16 21:00 96 Room Air 04/29/16 19:56 88 16 96 Room Air 04/29/16 15:32 98 16 96 Room Air 04/29/16 15:25 Room Air 04/29/16 14:41 36.5 81 20 127/63 91 04/29/16 11:14 99 16 95 Room Air Constitutional: WDWN male sitting on edge of hospital bed. NO acute distress Head: + facial symmetry Eyes: EOMi, PERRLA, no injection Mouth: moist mucous membranes. NO erythema, exudate or post-nasal gtt Respiratory: Non-labored respirations. No cough on exam. Coarse rales left base. No wheeze or rhonchi CV: RRR, no MRG. Warm and perfused peripherally. +2DP bilaterally with < 1s capillary refill MSK/Extremities: Moving and developed symmetrically. No peripheral edema. Neurologic: A&O. Good data recall. Appropriate affect. Diagnostics Labs Results Past 24 Hours Test 04/30/16 05:30 Range/Units White Blood Count 18.62 4.8-10.8 K/uL Red Blood Count 4.65 4.7-6.1 M/uL Hemoglobin 14.4 14.0-18.0 g/dL Hematocrit 41.4 42-52 % Mean Corpuscular Volume 89.0 80-100 fL Mean Corpuscular Hemoglobin 31.0 25-34 pg Mean Corpuscular Hemoglobin Concent 34.8 32-36 g/dl Platelet Count 264 130-400 K/uL Mean Platelet Volume 10.0 7.4-10.4 fL Neutrophils (%) (Auto) 90.0 % Lymphocytes (%) (Auto) 6.0 % Monocytes (%) (Auto) 3.1 % Eosinophils (%) (Auto) 0.0 % Basophils (%) (Auto) 0.1 % Neutrophils # (Auto) 16.77 1.4-6.5 K/uL Lymphocytes # (Auto) 1.11 1.2-3.4 K/uL Monocytes # (Auto) 0.58 0.11-0.59 K/uL Eosinophils # (Auto) 0.00 0-0.5 K/uL Basophils # (Auto) 0.01 0-0.2 K/uL RDW Standard Deviation 43.8 36.4-46.3 fL RDW Coefficient of Variation 13.5 11.5-14.5 % Immature Granulocyte % (Auto) 0.8 % Immature Granulocyte # (Auto) 0.15 0.00-0.02 K/uL Sodium Level 142 136-145 mmol/L Potassium Level 4.4 3.5-5.1 mmol/L Chloride Level 106 98-107 mmol/L Carbon Dioxide Level 26 21-32 mmol/L Anion Gap 10.0 3-11 mmol/L Blood Urea Nitrogen 29 7-18 mg/dl Creatinine 1.10 0.60-1.40 mg/dl Est Creatinine Clear Calc Drug Dose 64.2 ml/min Estimated GFR () 79.0 Estimated GFR (Non- 68.1 BUN/Creatinine Ratio 26.5 10-20 Random Glucose 134 70-99 mg/dl Calcium Level 9.0 8.5-10.1 mg/dl Impression Assessment and Plan 70-yo male with bronchitic asthma and prior right lobectomy presents with exacerbation. He is clinically improving on current regimen. 1. Transition to PO steroid today and continue nebulized bronchodilators 2. Continue pulmonary toilet (flutter) and ambulation throughout the halls encouraged 3. 2-step prior to discharge to assess ambulatory O2 needs 4. Advair 250/50: INH BID 5. Anticipate readiness for discharge today from pulmonary standpoint. Will follow-up in the outpatient office 1-2 weeks. If symptoms persist will arrange for bronchoscopy as outpatient.
--- NOTE | 2016-04-30 15:07 | Progress Note ---
Internal Med Progress Note Date of Service: Apr 30, 2016. Provider Documentation: SUBJECTIVE: The patient was seen and examined Feels a lot better since admission Minimal SOB at rest No fever,chills Much better today Ready to be discharged OBJECTIVE: Vital Signs-as noted below Exam: General-Minimal distress at rest Eyes-normal ENT-normal Neck-supple Lungs-Decreased breath sound bilaterally ,minimal wheezing and minimal crackles at the bases Heart-Regular,no murmur Abdomen-Benign no masses,bowel sound present Extremities-No edema Neuro-AAOx3 Lab data as noted below. ASSESSMENT & PLAN: ACUTE HYPOXIC RESPIRATORY FAILURE SOB,Excessive use of Accessory muscles,Low saturation 88% on RA,inability to converse on presentation Secondary to COPD exacerbation Failed outpatient treatment with PO prednisone, Azithromycin, and Levaquin Was saturating 88% on RA (not on home O2), now improved on 2L NC CXR shows no consolidation or pulmonary edema; Pro-BNP WNL IV Solumedrol,Nebs and Oxygen administration Blood cultures ,Check sputum culture and Influenza PCR-negative IV Zosyn for now Continue Advair- advised to use on schedule rather than PRN Pulmonary consult-appreciate input Advair added 2 steps before discharge-no need for oxygen Will give Doxy for 5 days CAD June 2015 showed severe CAD- medical management recommended Stable; no angina; troponin negative EKG- no evidence for ischemia Continue aspirin, statin DYSLIPIDEMIA Continue statin DVT PROPHYLAXIS Lovenox SQ DISPOSITION Followed with Dr. Randall who is retired; he has future appt with Dr. Quiroz in August 2016 F/w [facility] pulm and [facility] cardiology (Dr. Nickerson) Discharge home today Vital Signs: Date Time Temp Pulse Resp B/P Pulse Ox O2 Delivery O2 Flow Rate FiO2 04/30/16 11:12 77 16 95 Room Air 04/30/16 08:27 36.4 73 20 145/69 93 04/30/16 08:00 Room Air 04/30/16 07:05 84 16 97 Room Air 04/30/16 01:14 Room Air 04/29/16 23:37 36.3 92 20 133/68 96 Room Air 04/29/16 21:00 96 Room Air 04/29/16 19:56 88 16 96 Room Air 04/29/16 15:32 98 16 96 Room Air 04/29/16 15:25 Room Air Lab Results: Results Past 24 Hours Test 04/30/16 05:30 Range/Units White Blood Count 18.62 4.8-10.8 K/uL Red Blood Count 4.65 4.7-6.1 M/uL Hemoglobin 14.4 14.0-18.0 g/dL Hematocrit 41.4 42-52 % Mean Corpuscular Volume 89.0 80-100 fL Mean Corpuscular Hemoglobin 31.0 25-34 pg Mean Corpuscular Hemoglobin Concent 34.8 32-36 g/dl Platelet Count 264 130-400 K/uL Mean Platelet Volume 10.0 7.4-10.4 fL Neutrophils (%) (Auto) 90.0 % Lymphocytes (%) (Auto) 6.0 % Monocytes (%) (Auto) 3.1 % Eosinophils (%) (Auto) 0.0 % Basophils (%) (Auto) 0.1 % Neutrophils # (Auto) 16.77 1.4-6.5 K/uL Lymphocytes # (Auto) 1.11 1.2-3.4 K/uL Monocytes # (Auto) 0.58 0.11-0.59 K/uL Eosinophils # (Auto) 0.00 0-0.5 K/uL Basophils # (Auto) 0.01 0-0.2 K/uL RDW Standard Deviation 43.8 36.4-46.3 fL RDW Coefficient of Variation 13.5 11.5-14.5 % Immature Granulocyte % (Auto) 0.8 % Immature Granulocyte # (Auto) 0.15 0.00-0.02 K/uL Sodium Level 142 136-145 mmol/L Potassium Level 4.4 3.5-5.1 mmol/L Chloride Level 106 98-107 mmol/L Carbon Dioxide Level 26 21-32 mmol/L Anion Gap 10.0 3-11 mmol/L Blood Urea Nitrogen 29 7-18 mg/dl Creatinine 1.10 0.60-1.40 mg/dl Est Creatinine Clear Calc Drug Dose 64.2 ml/min Estimated GFR () 79.0 Estimated GFR (Non- 68.1 BUN/Creatinine Ratio 26.5 10-20 Random Glucose 134 70-99 mg/dl Calcium Level 9.0 8.5-10.1 mg/dl
[2016-04-30 15:12] VITALS: PULSE 85; O2SAT 93
--- NOTE | 2016-04-30 15:12 | Discharge Instructions ---
Discharge Instructions Admission Reason for Admission: COUGH Discharge Discharge Diagnosis / Problem: COPD exacerbation Discharge Goals Goal(s): Prevent Disease Progression Activity Recommendations Activity Limitations: resume your previous activity . Instructions / Follow-Up Instructions / Follow-Up Dr Quiroz on 05/06/16 at 9:50AM.Please make appointment with Pulmonary medicine in 2 weeks Current Hospital Diet Patient's current hospital diet: AHA Diet (Heart Healthy) Discharge Diet Recommended Diet: AHA Diet (Heart Healthy) Pending Studies Studies pending at discharge: no Medical Emergencies . Who to Call and When: Medical Emergencies: If at any time you feel your situation is an emergency, please call 911 immediately. . Non-Emergent Contact Non-Emergency issues call your: Primary Care Provider . . "Provider Documentation" section prepared by Aziza Villa. VTE Core Measure Inpt VTE Proph given/why not?: Enoxaparin (Lovenox)SQ
[2016-04-30 15:14] VITALS: BP 145/69; PULSE 77; TEMP 36.4; O2SAT 95
[2016-04-30 15:38] VITALS: BP 136/62; PULSE 81; TEMP 36.7; O2SAT 94
[2016-04-30] MEDS ORDERED: DOXYCYCLINE HYCLATE 100 MG CAP PO SCH (21:00)
[2016-04-30] MEDS ORDERED: FLUTICASONE/SALMETEROL 250/50 (ADVAIR) 14 PUFF/1 INHALER INH SCH (21:00)
--- NOTE | 2016-05-01 07:59 | Discharge Summary ---
Discharge Summary Admission Date: Apr 28, 2016 at 15:22 Discharge Date: Apr 30, 2016 Discharge Disposition: Home Principal Diagnosis: COPD exacerbation Secondary Diagnoses/Problems: Please see H&P Consultations: Pulmonary Medication Reconciliation Continued Medications: Albuterol Hfa (Ventolin Hfa) 200 Puffs/99623 Mcg Aers 2 PUFFS INH Q6H PRN for SOB/Wheezing, INHALER Aspirin (Aspirin Ec) 81 Mg Tab 243 MG PO DAILY 3 TABLET DOSE Atorvastatin (Atorvastatin Calcium) 40 Mg Tab 40 MG PO HS Cholecalciferol (Vitamin D3) 1,000 Unit Tab 1000 UNITS PO BID for 90 Days, TAB 3 Refills Coenzyme Q10 (Ubidecarenone) (Co Q-10) 100 Mg Cap 100 MG PO DAILY Fish Oil (Fisher-3) 1 Ea Cap 2 CAP PO QAM Fluticasone Prop/Salmeterol (Advair Diskus 250/50 60 Dose) 1 Ea Aerp 1 PUFFS INH BID for 90 Days, #3 INHALER 3 Refills Levofloxacin (Levaquin) 500 Mg Tab 500 MG PO DAILY for 10 Days, #10 TAB STARTED 04/25/16 Multiple Vitamins W/ Minerals (Centrum Silver Adult 50+) 1 Tab Tab 1 TAB PO DAILY Polyethylene (Miralax) 17 Gm Pow 17 GM PO DAILY PRN for Constipation Prednisone (Prednisone) 10 Mg Tab 10 MG PO UD, TAB TAPERED DOSE. CURRENTLY TAKING 40MG DAILY X2 DAYS STARTING 04/28/16 Admission Information HPI (per Admitting provider): This is a 70 year old male with PMH of asthma, COPD, history of right sided empyema s/p resection in 1992, CAD, hx TIA, and other problems listed below who presents to the ED for cough and SOB. Patient states symptoms started 1 week ago with a head cold which drained to his lungs and is now having increased cough with yellow/ brown sputum and increased SOB from baseline. Patient was seen by [facility] pulmonology Jolanta Caballero PA-C on 04/23 and started on Azithromycin and prednisone taper. Patient was not feeling better on that regimen so was changed to Levaquin, which he has been taking since evening without relief. Patient reports SOB is worse when he lays flat and was having paroxysmal nocturnal dyspnea. For past few days he had to sleep upright on the cough. He also has increased INGRAM from baseline. Yesterday had chest pain only during cough. He denies fever, chills, diffuse myalgias, dizziness, nausea , vomiting, abdominal pain, diarrhea, urinary change. No recent travel or sick contact. Patient is not on home oxygen. He was hypoxic to 88% on RA in ER and improved on 2 liters nasal cannula. He was treated with Duoneb, Solu-medrol, and doxycycline in ER. 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 Status: Chronic (5) Family history: Hypertension Status: Chronic (6) Pulmonary nodule Status: Chronic (7) Syncope Status: Resolved (8) TIA (transient ischemic attack) Permanent Comment: 2004 Status: Chronic (9) Zenkers diverticulum Permanent Comment: s/p repair Status: Chronic Surgical Problems: (1) H/O eye surgery Status: Chronic (2) H/O hernia repair Status: Chronic (3) H/O prostate biopsy Status: Chronic (4) S/P bronchoscopy Status: Chronic (5) S/P knee replacement Permanent Comment: right Status: Chronic (6) S/P lobectomy of lung Permanent Comment: 1992 for empyema Status: Chronic (7) S/P partial colectomy Permanent Comment: at [facility] for recurrent diverticulitis Status: Chronic Family History Hypertension Social History Smoking Status: Former Smoker Alcohol Use: none Drug Use: none Marital Status: Housing status: lives with family Occupational Status: employed Immunizations History of Influenza Vaccine: No Influenza Vaccine Date: Jan 14, 2007 History of Tetanus Vaccine?: Yes History of Pneumococcal: Yes History of Hepatitis B Vaccine: No Multi-Drug Resistant Organisms History of MDRO: No Allergies Coded Allergies: Hydrocodone (Verified Allergy, Mild, RASH, HIVES, 07/18/15) Home Medications Scheduled Aspirin (Aspirin Ec), 243 MG PO DAILY Atorvastatin (Atorvastatin Calcium), 40 MG PO HS Cholecalciferol (Vitamin D3), 1,000 UNITS PO BID Coenzyme Q10 (Ubidecarenone) (Co Q-10), 100 MG PO DAILY Fish Oil (Fisher-3), 2 CAP PO QAM Fluticasone Prop/Salmeterol (Advair Diskus 250/50 60 Dose), 1 PUFFS INH BID Levofloxacin (Levaquin), 500 MG PO DAILY Multiple Vitamins W/ Minerals (Centrum Silver Adult 50+), 1 TAB PO DAILY Prednisone (Prednisone), 10 MG PO UD Scheduled PRN Albuterol Hfa (Ventolin Hfa), 2 PUFFS INH Q6H PRN for SOB/Wheezing Polyethylene (Miralax), 17 GM PO DAILY PRN for Constipation Review of Systems Ten point review of systems performed with pertinent positives and negatives noted in HPI. Physical Exam Vital Signs Date Time Temp Pulse Resp B/P Pulse Ox O2 Delivery O2 Flow Rate FiO2 04/28/16 14:41 92 20 88 Room Air 04/28/16 14:00 88 20 126/65 91 Room Air 04/28/16 13:04 65 04/28/16 12:52 68 14 94 Room Air 04/28/16 12:17 86 94 Room Air 04/28/16 11:57 36.8 73 20 152/89 93 Room Air General Appearance: WD/WN, no apparent distress, + pertinent finding (pleasant alert 70 year old male, not in distress, at bedside) Head: normocephalic, atraumatic Eyes: normal inspection, PERRL, EOMI ENT: normal ENT inspection, hearing grossly normal Neck: supple, trachea midline Respiratory/Chest: no respiratory distress, no accessory muscle use, + crackles , + pertinent finding (mild wheezing left upper lung field, course breath sounds , saturating well on 2L NC) Cardiovascular: regular rate, rhythm, no murmur Abdomen/GI: normal bowel sounds, non tender, soft Extremities/Musculoskelatal: normal inspection, normal capillary refill, no pedal edema Neurologic/Psych: alert, normal mood/affect, oriented x 3, + pertinent finding (grossly nonfocal) Skin: normal color, warm/dry Diagnostics Laboratory Results Results Past 24 Hours Test 04/28/16 12:23 04/28/16 12:32 Range/Units White Blood Count 13.81 4.8-10.8 K/uL Red Blood Count 4.92 4.7-6.1 M/uL Hemoglobin 15.4 14.0-18.0 g/dL Hematocrit 44.0 42-52 % Mean Corpuscular Volume 89.4 80-100 fL Mean Corpuscular Hemoglobin 31.3 25-34 pg Mean Corpuscular Hemoglobin Concent 35.0 32-36 g/dl Platelet Count 250 130-400 K/uL Mean Platelet Volume 9.7 7.4-10.4 fL Neutrophils (%) (Auto) 78.7 % Lymphocytes (%) (Auto) 13.0 % Monocytes (%) (Auto) 7.1 % Eosinophils (%) (Auto) 0.4 % Basophils (%) (Auto) 0.1 % Neutrophils # (Auto) 10.89 1.4-6.5 K/uL Lymphocytes # (Auto) 1.79 1.2-3.4 K/uL Monocytes # (Auto) 0.98 0.11-0.59 K/uL Eosinophils # (Auto) 0.05 0-0.5 K/uL Basophils # (Auto) 0.01 0-0.2 K/uL RDW Standard Deviation 44.1 36.4-46.3 fL RDW Coefficient of Variation 13.5 11.5-14.5 % Immature Granulocyte % (Auto) 0.7 % Immature Granulocyte # (Auto) 0.09 0.00-0.02 K/uL Sodium Level 142 136-145 mmol/L Potassium Level 4.0 3.5-5.1 mmol/L Chloride Level 105 98-107 mmol/L Carbon Dioxide Level 28 21-32 mmol/L Anion Gap 9.0 3-11 mmol/L Blood Urea Nitrogen 20 7-18 mg/dl Creatinine 1.00 0.60-1.40 mg/dl Est Creatinine Clear Calc Drug Dose 70.7 ml/min Estimated GFR () 88.6 Estimated GFR (Non- 76.5 BUN/Creatinine Ratio 20.0 10-20 Random Glucose 93 70-99 mg/dl Calcium Level 9.5 8.5-10.1 mg/dl Total Creatine Kinase 69 39-308 U/L Creatine Kinase MB 1.1 0.5-3.6 ng/ml Creatine Kinase MB Ratio 1.6 0-3.0 Troponin I < 0.015 0-0.045 ng/ml Pro-B-Type Natriuretic Peptide 62 0-900 pg/ml Bedside Lactic Acid Venous 1.27 0.90-1.70 mmol/L Microbiology Results 04/28/16 Blood Culture, Received Pending 04/28/16 Blood Culture, Received Pending Diagnostic Radiology CHEST ONE VIEW PORTABLE CLINICAL HISTORY: Atypical chest pain. Difficulty breathing. COMPARISON STUDY: 04/25/2016 FINDINGS: The cardiac and mediastinal contours remain stable. There is superior right hilar retraction. The findings raise the possibility of a prior right upper lobectomy. Please correlate with any history of prior surgery. There is no focal pulmonary consolidation. There are no pleural effusions. IMPRESSION: AP portable study. Stable superior right hilar retraction. No acute parenchymal consolidation EKG NSR, 66 bpm, no acute ischemic findings Impression Assessment and Plan ACUTE HYPOXIC RESPIRATORY FAILURE Secondary to COPD exacerbation Failed outpatient treatment with PO prednisone, Azithromycin, and Levaquin Was saturating 88% on RA (not on home O2), now improved on 2L NC CXR shows no consolidation or pulmonary edema; Pro-BNP WNL Treated with Duoneb, Solu-Medrol, and doxycycline in ER Blood cultures pending Check sputum culture and influenza PCR Will treat with empiric Zosyn, IV Solu-Medrol 40 MG TID, Duonebs QID and Xopenex PRN Continue Advair- advised to use on schedule rather than PRN Continue supplemental O2 per protocol If no improvement would consider CT scan and pulm consult ([facility]) CAD June 2015 showed severe CAD- medical management recommended Stable; no angina; troponin negative EKG- no evidence for ischemia Continue aspirin, statin DYSLIPIDEMIA Continue statin DVT PROPHYLAXIS Lovenox SQ DISPOSITION Followed with Dr. Randall who is retired; he has future appt with Dr. Quiroz in August 2016 F/w [facility] pulm and [facility] cardiology (Dr. Nickerson) Patient seen in collaboration with Dr. Whitman. Please see his addendum. Attending Note: Patient is a 70 yr old male with PMH of COPD, CAD, TIA, HLP presents with history of worsening productive cough and SOB since 1 week duration. Patient failed to respond to oral antibiotics and prednisone prescribed by his PCP. He states SOB is worse while lying down but denies any fever, chills, PND or pedal edema. BNP wnl. Also associated with chest pain on coughing. While in ED he was saturating at 88% on RA and currently 94 % on 2l NC. Physical Exam: Vitals signs as noted above General Appearance:Moderately built and nourished, no apparent distress Head: normocephalic, Atraumatic Eyes: normal inspection, EOMI, PERRLA, Anicteric Neck: supple, no JVD, Trachea midline Respiratory/Chest: Coarse breath sounds, b/l + crackles, minimal wheezing. No accessory muscle use Cardiovascular: S1, S2, NSR, Tachycardia, No murmur Abdomen/GI:Soft, Non tender, Bowel sounds present Extremities/Musculoskeletal:normal inspection, no calf tenderness, cyanosis, clubbing, edema Neurologic/Psych:AAOX3, grossly no focal neurological deficits Skin:normal color,warm Assessment and Plan: Acute Respiratory failure with hypoxia/hypercapnia Secondary to COPD Exacerbation Admit as inpatient Patient failed outpatient steroid and antibiotic therapy ( Azithromycin and Levaquin) CXR: no signs of consolidation Start on broad spectrum IV antibiotics IV solumedrol, bronchodilators Get Blood/sputum culture and gram strain Oxygen support per protocol Repeat labs in AM Will consider CT chest if no improvement I personally reviewed the record. Patient is interviewed and examined at bedside. Patient's care is coordinated with Bhargavi Durand PA-C. Please refer to the documentation above for details of patient's presentation and for discussion of other issues. Physical Exam (per Admitting): General Appearance: WD/WN, no apparent distress, + pertinent finding Head: normocephalic, atraumatic Eyes: normal inspection, PERRL, EOMI ENT: normal ENT inspection, hearing grossly normal Neck: supple, trachea midline Respiratory/Chest: no respiratory distress, no accessory muscle use, + crackles, + pertinent finding Cardiovascular: regular rate, rhythm, no murmur Abdomen/GI: normal bowel sounds, non tender, soft Extremities/Musculoskelatal: normal inspection, normal capillary refill, no pedal edema Neurologic/Psych: alert, normal mood/affect, oriented x 3, + pertinent finding Skin: normal color, warm/dry Hospital Course ACUTE HYPOXIC RESPIRATORY FAILURE SOB,Excessive use of Accessory muscles,Low saturation 88% on RA,inability to converse on presentation Secondary to COPD exacerbation Failed outpatient treatment with PO prednisone, Azithromycin, and Levaquin Was saturating 88% on RA (not on home O2), now improved on 2L NC CXR shows no consolidation or pulmonary edema; Pro-BNP WNL IV Solumedrol,Nebs and Oxygen administration Blood cultures ,Check sputum culture and Influenza PCR-negative IV Zosyn for now Continue Advair- advised to use on schedule rather than PRN Pulmonary consult-appreciate input Advair added 2 steps before discharge-no need for oxygen Will give Doxy for 5 days CAD June 2015 showed severe CAD- medical management recommended Stable; no angina; troponin negative EKG- no evidence for ischemia Continue aspirin, statin DYSLIPIDEMIA Continue statin DVT PROPHYLAXIS Lovenox SQ DISPOSITION Followed with Dr. Randall who is retired; he has future appt with Dr. Quiroz in August 2016 F/w [facility] pulm and [facility] cardiology (Dr. Nickerson) Discharge home today Total time spent on discharge = 35 minutes This includes examination of the patient, discharge planning, medication reconciliation, and communication with other providers. Discharge Instructions Admission Reason for Admission: COUGH Discharge Discharge Diagnosis / Problem: COPD exacerbation Discharge Goals Goal(s): Prevent Disease Progression Activity Recommendations Activity Limitations: resume your previous activity . Instructions / Follow-Up Instructions / Follow-Up Dr Quiroz on 05/06/16 at 9:50AM.Please make appointment with Pulmonary medicine in 2 weeks Current Hospital Diet Patient's current hospital diet: AHA Diet (Heart Healthy) Discharge Diet Recommended Diet: AHA Diet (Heart Healthy) Pending Studies Studies pending at discharge: no Medical Emergencies . Who to Call and When: Medical Emergencies: If at any time you feel your situation is an emergency, please call 911 immediately. . Non-Emergent Contact Non-Emergency issues call your: Primary Care Provider . . "Provider Documentation" section prepared by Aziza Villa. VTE Core Measure Inpt VTE Proph given/why not?: Enoxaparin (Lovenox)SQ Additional Copies To Yaw Quiroz M.D.
== END 2016-04-30 15:54 | disposition home or self-care (01) | DRG 190 ==
LOC: ENRESERVDT → ENRESERVTM → C.EDB 11:54 → C.MS2W 15:22
PROVIDERS: ADMIT Internal Medicine; ATTEND Internal Medicine
DX: J44.1 Chronic obstructive pulmonary disease with (acute) exacerbation (principal); J96.01 Acute respiratory failure with hypoxia; J96.02 Acute respiratory failure with hypercapnia; J45.909 Unspecified asthma, uncomplicated; I25.10 Atherosclerotic heart disease of native coronary artery without angina pectoris; E78.5 Hyperlipidemia, unspecified; N40.0 Benign prostatic hyperplasia without lower urinary tract symptoms; Z90.2 Acquired absence of lung [part of]; Z90.49 Acquired absence of other specified parts of digestive tract; Z86.73 Personal history of transient ischemic attack (TIA), and cerebral infarction without residual deficits; Z96.651 Presence of right artificial knee joint; Z87.891 Personal history of nicotine dependence; Z79.82 Long term (current) use of aspirin; Z79.51 Long term (current) use of inhaled steroids; Z79.52 Long term (current) use of systemic steroids; Z79.899 Other long term (current) drug therapy

== ENCOUNTER → 2016-10-14 | Outpatient (CLI) | payer BC, OTHER ==
[~2016-10-14] MED LIST changes: -ACET-1256 PO; -ALBU1AER9 INH; +CHOL1000 PO; -CHOL100010 PO; -DICL-201 PO; -IBUP-1050 PO; -ISOS30TA3 PO; +LEVO500T19 PO; +MRLP17X PO; +MULT-845 PO; +PRED10TA PO; +VNTHFA/IN INH
== END | disposition home or self-care (01) ==
LOC: C.RDSM 08:57
PROVIDERS: ATTEND Physical Medicine & Rehabilitation Sports Medicine
DX: M25.561 Pain in right knee (principal)

== ENCOUNTER 2017-04-17 18:40 | Emergency (ER) | payer BC ==
[~2017-04-17] VITALS: Ht 170.2 cm; Wt 76.5 kg
[2017-04-17 19:00] VITALS: TEMP 36.7; Ht 170.2 cm; Wt 76.5 kg
[2017-04-17] MEDS ORDERED: TRAM-10 PO (19:52)
[2017-04-17] MEDS ORDERED: TADA5TAB11 PO (19:52)
[2017-04-17] MEDS ORDERED: LIDOCAINE/EPINEPHRINE 1% 20 ML VIAL INFIL ONE (20:00)
[2017-04-17] MEDS ORDERED: DIPHTHERIA/TETANUS/PERTUSSIS 0.5 ML SYR/VIAL IM. ONE (20:00)
--- NOTE | 2017-04-17 20:12 | EMERGENCY ROOM VISIT NOTE ---
ED Visit Note First contact with patient: 19:39 CHIEF COMPLAINT: Hand laceration HISTORY OF PRESENT ILLNESS: This 71-year-old male presents to the emergency department with complaint of laceration on his left hand. Patient states the hand got cut accidentally around 3 PM today, he states he was resting his hand on a fence post and one of his cows kicked the post, causing the laceration on his hand between his thumb finger. The bleeding stopped shortly after the injury and there is no weakness or numbness of the hand or fingers. He rates the pain as throbbing, 4/10. He has not tried any medications for the pain. He is unsure of his tetanus status, but thinks it may have been more than 10 years. He is left-hand dominant. No previous significant injuries to this hand. REVIEW OF SYSTEMS: A 6 point review of systems was reviewed with the patient with pertinent positives and negatives as per history of present illness. All else were negative. PMH: Reviewed in chart SOCIAL HISTORY: Patient lives at home. He denies tobacco use. PHYSICAL EXAM: Vital Signs: Reviewed Nurse's notes. CONSTITUTIONAL: Pleasant and cooperative. No acute distress. Well appearing and well nourished. HEENT: Normocephalic, atraumatic. NECK: Supple, full active range of motion without discomfort. RESPIRATORY: Clear to auscultation bilaterally with no wheezing, crackles, rhonchi or stridor. Equal expansion bilaterally. CARDIOVASCULAR: Regular rate and rhythm with no murmurs, rubs or gallops. Normal peripheral perfusion. No edema. MUSCULOSKELETAL: Full range of motion of all joints without discomfort. INTEGUMENTARY: There is a 1.5 cm long laceration in the webspace between the left thumb and palm of the hand. The edges gape apart with traction. There is no foreign material in the wound and it looks clean. There is no active bleeding. No deep structures such as tendons or nerves are seen in the base of the wound. Extension and flexion of all the fingers is full and strong. Sensation to pain and light touch is intact. NEUROLOGIC: Alert and oriented X 4 with normal affect. EMERGENCY DEPARTMENT COURSE: I examined the patient. Exam findings consistent with a superficial laceration, however it appears deep enough for closure. There are no involved tendons, blood vessels, or nerves apparent on exam. Patient has full motor function and sensation intact. Patient's tetanus was updated today. I obtained verbal consent from the patient to perform the procedure. Using sterile technique, saline and Betadine cleansing, and 1% lidocaine with epinephrine anesthesia, the laceration was irrigated with saline and then repaired with 3, 5-0 nylon sutures. Hemostasis was achieved. The patient tolerated the procedure well with no known complications. The hand was then bandaged with bacitracin and sterile dressing. Patient was instructed on worrisome symptoms to watch for, as well as wound care and follow-up, he verbalized understanding. The patient was discharged home in stable condition and ambulatory. Medication Reconciliation: I attest that I have personally reviewed the patient' s current medication list. Blood pressure screening: The patient was found to have an elevated blood pressure and was referred to their primary doctor for recheck and further treatment. 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 Status: Chronic (5) Family history: Hypertension Status: Chronic (6) Pulmonary nodule Status: Chronic (7) Syncope Status: Resolved (8) TIA (transient ischemic attack) Permanent Comment: 2004 Status: Chronic (9) Zenkers diverticulum Permanent Comment: s/p repair Status: Chronic Surgical Problems: (1) H/O eye surgery Status: Chronic (2) H/O hernia repair Status: Chronic (3) H/O prostate biopsy Status: Chronic (4) S/P bronchoscopy Status: Chronic (5) S/P knee replacement Permanent Comment: right Status: Chronic (6) S/P lobectomy of lung Permanent Comment: 1992 for empyema Status: Chronic (7) S/P partial colectomy Permanent Comment: at [facility] [place] for recurrent diverticulitis Status: Chronic Current/Historical Medications Scheduled Aspirin (Aspirin Ec), 243 MG PO DAILY Atorvastatin (Lipitor), 40 MG PO HS Cholecalciferol (Vitamin D3), 1,000 UNITS PO BID Coenzyme Q10 (Ubidecarenone) (Co Q-10), 100 MG PO DAILY Fish Oil (Ortley-3), 2 CAP PO QAM Multiple Vitamins W/ Minerals (Centrum Silver Adult 50+), 1 TAB PO DAILY Scheduled PRN Albuterol Hfa (Ventolin Hfa), 2 PUFFS INH Q6H PRN for SOB/Wheezing Fluticasone Prop/Salmeterol (Advair Diskus 250/50 60 Dose), 1 PUFFS INH BID PRN for Shortness of Breath Polyethylene (Miralax), 17 GM PO DAILY PRN for Constipation Tadalafil (Cialis), 5 MG PO UD PRN for PRN Tramadol (Ultram), 50 MG PO Q6H PRN for Pain Allergies Coded Allergies: Hydrocodone (Verified Allergy, Mild, RASH, HIVES, 04/17/17) Vital Signs Date Time Temp Pulse Resp B/P (MAP) Pulse Ox O2 Delivery O2 Flow Rate FiO2 04/17/17 22:48 56 150/70 94 04/17/17 19:00 36.7 59 18 162/83 95 Room Air Medications Administered Medications (Trade) Dose Ordered Sig/Timothy Route Start Time Stop Time Status Last Admin Dose Admin Lidocaine/ Epinephrine (Xylocaine/Epine 1% Inj) 20 ml ONE ONCE INFIL 04/17/17 20:00 04/17/17 20:01 DC 04/17/17 20:09 20 ML Diphtheria/ Pertussis/Tetanus Vacc (Adacel Inj) 0.5 ml ONCE ONCE IM. 04/17/17 20:00 04/17/17 20:01 DC 04/17/17 20:10 0.5 ML Departure Information Impression Primary Impression: Laceration of left hand Dispostion Home / Self-Care Condition GOOD Referrals Yaw Quiroz M.D. ([facility]) (PCP) Patient Instructions ED Laceration Hand, My [facility] Additional Instructions You have received 3 sutures on your left hand. These sutures are not dissolvable and must be removed by a health care provider. Please follow-up with your PCP, in urgent care, or return to the ER for suture removal in 8-10 days. Keep the wound clean and dry. Do not allow any crusting or dried blood to accumulate on sutures. If this occurs, use a 1:1 solution of hydrogen peroxide/ water on a Q-tip to clean the wound. Do not immerse your hand in water. Keep the wound covered and wear gloves when working in a dirty environment. Use an antibiotic ointment for 3-4 days, then let the wound dry. Ice and elevate for swelling and pain. Ibuprofen 600 mg and Tylenol 1000 mg every 8 hours as needed for pain. As with any laceration, there may be temporary or permanent nerve damage to the area. Please seek immediate medical attention for any signs of infection (increasing redness, pain, swelling, pus drainage, streaking up the arm, fever/chills). Work Instructions Return To Work: 2 days Problem Qualifiers Primary Impression: Laceration of left hand Encounter type: initial encounter Foreign body presence: without foreign body Qualified Codes: S61.412A - Laceration without foreign body of left hand , initial encounter
[2017-04-17 22:48] VITALS: BP 150/70; PULSE 56; O2SAT 94
== END 2017-04-17 22:48 | disposition home or self-care (01) ==
LOC: C.EDB 18:41 → C.EDD 22:48
DX: S61.412A Laceration without foreign body of left hand, initial encounter (principal); W55.89XA Other contact with other mammals, initial encounter; N40.0 Benign prostatic hyperplasia without lower urinary tract symptoms; I25.10 Atherosclerotic heart disease of native coronary artery without angina pectoris; E78.5 Hyperlipidemia, unspecified; I10 Essential (primary) hypertension; R91.1 Solitary pulmonary nodule; Z86.73 Personal history of transient ischemic attack (TIA), and cerebral infarction without residual deficits; Z96.651 Presence of right artificial knee joint; Z90.2 Acquired absence of lung [part of]; Z90.49 Acquired absence of other specified parts of digestive tract; Z79.82 Long term (current) use of aspirin; Z79.899 Other long term (current) drug therapy; Z23 Encounter for immunization

== ENCOUNTER → 2017-04-28 | Outpatient (CLI) | payer BC ==
[~2017-04-28] MED LIST changes: -LEVO500T19 PO; -PRED10TA PO; +TADA5TAB11 PO; +TRAM-10 PO
== END | disposition home or self-care (01) ==
LOC: C.RDSM 18:12
PROVIDERS: ATTEND Physical Medicine & Rehabilitation Sports Medicine
DX: M25.561 Pain in right knee (principal)

== ENCOUNTER 2017-06-04 19:35 | Emergency (ER) | payer BC ==
[~2017-06-04] VITALS: Ht 170.2 cm; Wt 79.2 kg
[~2017-06-04 19:35] MED LIST changes: -ASPI81TA28 PO; -TADA5TAB11 PO
[2017-06-04 19:40] VITALS: TEMP 36.8; Ht 170.2 cm; Wt 79.2 kg
[2017-06-04] MEDS ORDERED: TADA5TAB11 PO (19:52)
[2017-06-04 21:11] VITALS: O2SAT 98
[2017-06-04] MEDS: SODIUM CHLORIDE 0.9% 1000ML 1,000 ML IV SCH (21:58)
[2017-06-04] MEDS ORDERED: CHOL2000 PO (22:27)
[2017-06-04] MEDS ORDERED: ALBU18002 INH (22:27)
[2017-06-04] MEDS ORDERED: ULT50 PO (22:27)
[2017-06-04] MEDS ORDERED: FLM4 PO (22:27)
[2017-06-04] MEDS ORDERED: ZCR40 PO (22:27)
[2017-06-04 22:28] LABS: BASO % 1.1 %; BASO ABS # 0.07 K/uL (0-0.2); EOS ABS # 0.19 K/uL (0-0.5); HEMATOCRIT 40.6 % (42-52); IG# 0.01 K/uL (0.00-0.02); LYMPH % 29.2 %; LYMPH ABS # 1.82 K/uL (1.2-3.4); MEAN CORPUSCULAR HGB CONC 34.5 g/dl (32-36); MEAN PLATELET VOLUME 9.7 fL (7.4-10.4); MONO % 7.2 %; MONO ABS # 0.45 K/uL (0.11-0.59); NEUT % 59.3 %; NEUT ABS # 3.69 K/uL (1.4-6.5); PLATELET COUNT 222 K/uL (130-400); RED CELL DISTRIBUTION WIDTH CV 12.9 % (11.5-14.5); RED CELL DISTRIBUTION WIDTH SD 42.3 fL (36.4-46.3); WHITE BLOOD COUNT 6.23 K/uL (4.8-10.8)
[2017-06-04 22:39] LABS: PTT PATIENT 26.8 SECONDS (21.0-31.0)
--- NOTE | 2017-06-04 22:43 | DIAGNOSTIC IMAGING REPORT ---
CT HEAD WITHOUT CONTRAST (CT) CLINICAL HISTORY: Stroke COMPARISON STUDY: MRI the brain performed July 2009 TECHNIQUE: Axial CT of the brain is performed from the vertex to the skull base. IV contrast was not administered for this examination. A dose lowering technique was utilized adhering to the principles of ALARA. CT DOSE: 537.48 mGy.cm FINDINGS: No intra or extra-axial mass lesions are visualized. There is no CT evidence of acute cortical infarction. There is no evidence of midline shift. There is no acute hemorrhage. No calvarial fractures are visualized. There are patchy white matter hypodensities likely on a small vessel basis. There is no evidence of pathologic ventricular dilatation. There is no evidence of acute sinusitis IMPRESSION: No acute intracranial findings Electronically signed by: Andrew Ramos M.D. 06/04/2017 10:42 PM Dictated Date/Time: 06/04/2017 10:41 PM
[2017-06-04 22:46] LABS: BLOOD UREA NITROGEN 20 mg/dl (7-18); CARBON DIOXIDE 30 mmol/L (21-32); CREATININE 1.04 mg/dl (0.60-1.40); GLUCOSE 120 mg/dl (70-99); POTASSIUM 4.1 mmol/L (3.5-5.1); SODIUM 141 mmol/L (136-145)
[2017-06-04 22:51] LABS: CKMB 1.6 ng/ml (0.5-3.6)
[2017-06-04 22:59] VITALS: BP 126/69; PULSE 59; O2SAT 96
[2017-06-04] MEDS ORDERED: ASPI81TA28 PO (23:42)
--- NOTE | 2017-06-05 01:14 | EMERGENCY ROOM VISIT NOTE ---
History Report prepared by Noe: Lilly Angel Under the Supervision of: Dr. Ajay Torres D.O. First contact with patient: 21:46 Chief Complaint: NEURO SYMPTOMS Stated Complaint: LEFT HAND NUMBNESS, DOESN'T FEEL RT-HX MINI STROKE History of Present Illness The patient is a 71 year old male who presents to the Emergency Room with complaints of intermittent left hand numbness starting today. The numbness started in his ring finger and spread to his entire hand and up his wrist but no further. He notes that he was using his left hand a lot yesterday in a gripping motion. His right eye has been red and itchy without discharge. Symptoms were significant worse following performing the gripping motion were working. He states that he just doesn't feel right. He denies any weakness, headache, chest pain, SOB, nausea, vomiting, or diarrhea. He has a history of right knee replacement. He denies any other medical problems. He has no absolute no other complaints. No cough or runny nose. He denies any other weakness. Source of History: patient Onset: today Position: hand (left) Quality: numbness Timing: intermittent Associated Symptoms: No headache, No chest pain, No SOB, No nausea, No vomiting, No diarrhea, No weakness Review of Systems See HPI for pertinent positives & negatives. A total of 10 systems reviewed and were otherwise negative. Past Medical & Surgical Medical Problems: (1) BPH (benign prostatic hypertrophy) (2) CAD (coronary artery disease) (3) Dyslipidemia (4) Empyema of lung (5) Family history: Hypertension (6) Pulmonary nodule (7) Right Knee DJD (8) Syncope (9) TIA (transient ischemic attack) (10) Zenkers diverticulum Surgical Problems: (1) H/O eye surgery (2) H/O hernia repair (3) H/O prostate biopsy (4) S/P bronchoscopy (5) S/P knee replacement (6) S/P lobectomy of lung (7) S/P partial colectomy Family History FH: CAD (coronary artery disease) MOTHER FH: colon cancer FATHER Hypertension Social History Smoking Status: Former Smoker Alcohol Use: none Drug Use: none Marital Status: Housing Status: lives with family Occupation Status: employed Current/Historical Medications Scheduled Aspirin (Aspirin Ec), 243 MG PO DAILY Cholecalciferol (Vitamin D3), 2,000 INTER.UNIT PO DAILY Coenzyme Q10 (Ubidecarenone) (Co Q-10), 100 MG PO DAILY Fish Oil ([place]-3), 2 CAP PO QAM Multiple Vitamins W/ Minerals (Centrum Silver Adult 50+), 1 TAB PO DAILY Simvastatin (Simvastatin), 40 MG PO HS Tamsulosin HCl (Tamsulosin HCl), 0.4 MG PO DAILY Scheduled PRN Albuterol Sulfate (Proair Respiclick), 2 PUFFS INH Q4H PRN for SOB/Wheezing Fluticasone Prop/Salmeterol (Advair Diskus 250/50 60 Dose), 1 PUFF INH BID PRN for Shortness of Breath Polyethylene (Miralax), 17 GM PO DAILY PRN for Constipation Tadalafil (Cialis), 5 MG PO UD PRN for PRN Tramadol HCl (Tramadol HCl), 50 MG PO Q6H PRN for Pain Allergies Coded Allergies: Hydrocodone (Verified Allergy, Mild, RASH, HIVES, 04/17/17) Physical Exam Vital Signs Date Time Temp Pulse Resp B/P (MAP) Pulse Ox O2 Delivery O2 Flow Rate FiO2 06/04/17 22:59 59 16 126/69 96 Room Air 06/04/17 21:16 56 06/04/17 21:11 98 Room Air 06/04/17 21:10 56 133/70 98 Room Air 06/04/17 19:40 36.8 65 18 148/79 96 Room Air Physical Exam GENERAL: Sitting up in bed, alert, well appearing, well nourished, no distress, non-toxic EYE EXAM: normal conjunctiva. PERRL and EOM's intact. OROPHARYNX: no exudate, no erythema, lips, buccal mucosa, and tongue normal and mucous membranes are moist NECK: supple, no nuchal rigidity, no adenopathy, non-tender LUNGS: Clear to auscultation. Normal chest wall mechanics HEART: no murmurs, S1 normal and S2 normal ABDOMEN: abdomen soft, non-tender, normo-active bowel sounds, no masses, no rebound or guarding. BACK: Back is symmetrical on inspection and there is no deformity, no midline tenderness, no CVA tenderness. SKIN: no rashes and no bruising UPPER EXTREMITIES: positive Tinel's sign of left wrist. LOWER EXTREMITIES: No pitting edema. NEURO EXAM: Normal sensorium, cranial nerves II-XII intact, normal speech, no weakness of arms, no weakness of legs. No drift. Finger to nose intact. Gross sensation intact. Medical Decision & Procedures ER Provider Diagnostic Interpretation: Radiology results as stated below per my review and the radiologist's interpretation: CT HEAD WITHOUT CONTRAST (CT) CLINICAL HISTORY: Stroke COMPARISON STUDY: MRI the brain performed July 2009 TECHNIQUE: Axial CT of the brain is performed from the vertex to the skull base. IV contrast was not administered for this examination. A dose lowering technique was utilized adhering to the principles of ALARA. CT DOSE: 537.48 mGy.cm FINDINGS: No intra or extra-axial mass lesions are visualized. There is no CT evidence of acute cortical infarction. There is no evidence of midline shift. There is no acute hemorrhage. No calvarial fractures are visualized. There are patchy white matter hypodensities likely on a small vessel basis. There is no evidence of pathologic ventricular dilatation. There is no evidence of acute sinusitis IMPRESSION: No acute intracranial findings Electronically signed by: Andrew Ramos M.D. 06/04/2017 10:42 PM Dictated Date/Time: 06/04/2017 10:41 PM Laboratory Results 06/04/17 22:15 Red Blood Count 4.51, Mean Corpuscular Volume 90.0, Mean Corpuscular Hemoglobin 31.0, Mean Corpuscular Hemoglobin Concent 34.5, Mean Platelet Volume 9.7, Neutrophils (%) (Auto) 59.3, Lymphocytes (%) (Auto) 29.2, Monocytes (%) (Auto) 7.2, Eosinophils (%) (Auto) 3.0, Basophils (%) (Auto) 1.1, Neutrophils # (Auto) 3.69, Lymphocytes # (Auto) 1.82, Monocytes # (Auto) 0.45, Eosinophils # (Auto) 0.19, Basophils # (Auto) 0.07 06/04/17 22:15 Test 06/04/17 22:11 06/04/17 22:15 Bedside Glucose 122 mg/dl (70-99) White Blood Count 6.23 K/uL (4.8-10.8) Red Blood Count 4.51 M/uL (4.7-6.1) Hemoglobin 14.0 g/dL (14.0-18.0) Hematocrit 40.6 % (42-52) Mean Corpuscular Volume 90.0 fL (80-100) Mean Corpuscular Hemoglobin 31.0 pg (25-34) Mean Corpuscular Hemoglobin Concent 34.5 g/dl (32-36) Platelet Count 222 K/uL (130-400) Mean Platelet Volume 9.7 fL (7.4-10.4) Neutrophils (%) (Auto) 59.3 % Lymphocytes (%) (Auto) 29.2 % Monocytes (%) (Auto) 7.2 % Eosinophils (%) (Auto) 3.0 % Basophils (%) (Auto) 1.1 % Neutrophils # (Auto) 3.69 K/uL (1.4-6.5) Lymphocytes # (Auto) 1.82 K/uL (1.2-3.4) Monocytes # (Auto) 0.45 K/uL (0.11-0.59) Eosinophils # (Auto) 0.19 K/uL (0-0.5) Basophils # (Auto) 0.07 K/uL (0-0.2) RDW Standard Deviation 42.3 fL (36.4-46.3) RDW Coefficient of Variation 12.9 % (11.5-14.5) Immature Granulocyte % (Auto) 0.2 % Immature Granulocyte # (Auto) 0.01 K/uL (0.00-0.02) Prothrombin Time 10.7 SECONDS (9.0-12.0) Prothromb Time International Ratio 1.0 (0.9-1.1) Activated Partial Thromboplast Time 26.8 SECONDS (21.0-31.0) Partial Thromboplastin Ratio 1.0 Anion Gap 5.0 mmol/L (3-11) Est Creatinine Clear Calc Drug Dose 61.8 ml/min Estimated GFR () 83.9 Estimated GFR (Non- 72.4 BUN/Creatinine Ratio 19.0 (10-20) Calcium Level 9.0 mg/dl (8.5-10.1) Magnesium Level 2.5 mg/dl (1.8-2.4) Total Creatine Kinase 98 U/L (39-308) Creatine Kinase MB 1.6 ng/ml (0.5-3.6) Creatine Kinase MB Ratio 1.6 (0-3.0) Troponin I < 0.015 ng/ml (0-0.045) Laboratory results per my review. Medications Administered Medications (Trade) Dose Ordered Sig/Timothy Route Start Time Stop Time Status Last Admin Dose Admin Sodium Chloride 1,000 ml @ 50 mls/hr Q20H IV 06/04/17 21:58 06/04/17 23:42 DC 06/04/17 21:58 50 MLS/HR ECG Per My Interpretation Indication: other Rate (beats per minute): 56 Rhythm: sinus bradycardia Findings: other (normal axis, no PVC) ED Course ED COURSE: Vital signs were reviewed and showed normal vitals. The patients medical record was reviewed The above diagnostic studies were performed and reviewed. ED treatments and interventions as stated above. 2152: The patient was evaluated in room B7. A complete history and physical examination was performed. 2157: NSS 1000 ml @ 50 mls/hr IV. 2257: Upon reevaluation, the patient notes that his numbness worsened after the exam. I discussed my findings with the patient and he understands and agrees with the treatment plan. Based on the patients age, coexisting illnesses, exam and lab findings the decision to treat as an outpatient was made. The patient remained stable while under my care. The patient appeared well at the time of discharge. Medical Decision Differential Diagnosis includes but is not limited to ischemic Stroke, hemorrhagic stroke, bells palsy, mass, neoplasm, migraine headache, seizure, subarachnoid hemorrhage, TIA, and transient global amnesia. Patient is a 71-year-old male that was working in performing a gripping motion. Following this he notes he started having tingling in his third and fourth digits of his left hand. When this worsened over progress to all of his digits and, approximately to his wrist did not go any further. No weakness. No headaches or change in vision. No chest pain shortness breath. No other weakness or numbness. CBC all BMP was unremarkable. Troponin was negative. He has no urinary symptoms. No upper respiratory symptoms to suggest cough or runny nose. Nothing to suggest influenza. CT head was negative. On exam I am able to reproduce the tingling and numbness in his hand as he has a positive Tinel sign. I do believe this is most consistent with carpal tunnel syndrome. He was updated bedside. He is placed in a wrist splint. He was discharged follow-up with PCP. Discussed with Pt concerning signs and symptoms to watch out for. Pt was instructed to follow up with their PCP and discussed with the patient their option to return to the ED at anytime for persistent or worsening symptoms. The appropriate anticipatory guidance and out-patient management, including indications for return to the emergency department, were explained at length to the patient and understood. Medication Reconcilliation Current Medication List: was personally reviewed by me Blood Pressure Screening Patient's blood pressure: Normal blood pressure Blood pressure disposition: Did not require urgent referral Impression Primary Impression: Carpal tunnel syndrome of left wrist Scribe Attestation The scribe's documentation has been prepared under my direction and personally reviewed by me in its entirety. I confirm that the note above accurately reflects all work, treatment, procedures, and medical decision making performed by me. Departure Information Dispostion Home / Self-Care Forms WORK / SCHOOL INSTRUCTIONS, HOME CARE DOCUMENTATION FORM, IMPORTANT VISIT INFORMATION Patient Instructions Carpal Tunnel Syndrome Prevent, My [facility], ED Splint [facility] Additional Instructions Please follow up with your primary care doctor with in the next 24 hours. Any worsening of your symptoms, please return to the ED immediately. This includes any fevers greater than 100.4, worsening pain, chest pain, shortness breath, weakness or numbness in your arms or legs or face, unable to eat or drink, or any other concerning signs or symptoms from your standpoint. Please take Tylenol or Motrin as needed for pain. These try not to overuse your right wrist.
== END 2017-06-04 23:15 | disposition home or self-care (01) ==
LOC: C.EDB 19:37
DX: G56.02 Carpal tunnel syndrome, left upper limb (principal); N40.0 Benign prostatic hyperplasia without lower urinary tract symptoms; I25.10 Atherosclerotic heart disease of native coronary artery without angina pectoris; E78.5 Hyperlipidemia, unspecified; Z86.73 Personal history of transient ischemic attack (TIA), and cerebral infarction without residual deficits; R55 Syncope and collapse; Z82.49 Family history of ischemic heart disease and other diseases of the circulatory system; Z87.891 Personal history of nicotine dependence; Z79.82 Long term (current) use of aspirin; Z88.5 Allergy status to narcotic agent

== ENCOUNTER 2017-07-12 11:01 | Emergency (ER) | payer BC ==
[~2017-07-12] VITALS: Ht 170.2 cm; Wt 78.0 kg
[~2017-07-12 11:01] MED LIST changes: +ALBU18002 INH; +ASPI81TA28 PO; -CHOL1000 PO; +CHOL2000 PO; +FLM4 PO; -LPT40 PO; +TADA5TAB11 PO; -TRAM-10 PO; +ULT50 PO; -VNTHFA/IN INH; +ZCR40 PO
[2017-07-12 11:03] VITALS: TEMP 36.8; Ht 170.2 cm; Wt 78.0 kg
[2017-07-12] MEDS ORDERED: ALBUT/IPRATROP 3MG/0.5MG NEB 3 ML VIAL INH STA (11:13)
--- NOTE | 2017-07-12 11:15 | EMERGENCY ROOM VISIT NOTE ---
History Report prepared by Noe: Du Sneed Under the Supervision of: Dr. Binh Hidalgo M.D. First contact with patient: 11:08 Chief Complaint: COUGH Stated Complaint: COUGHING,NOT FEELING WELL Nursing Triage Summary: pt here with prod cough x a few days. pt states hx of pneumonia many times, pt would like checked for that. pt states has been using neb at home. History of Present Illness The patient is a 71 year old male who presents to the Emergency Room with complaints of constant chest congestion for the past several days. The patient notes that his illness began as a sore throat, with the discomfort then migrating to his chest. The patient notes experiencing severe shortness of breath which is worsened with exertion. He reports a history of pneumonia, lung surgery, and COPD for which he has an inhaler & nebulizer at home. The patient denies using oxygen at home, or experiencing any vomiting/diarrhea. The patient' s reports that she has had a cold and cough for the past week. The patient states that he received his flu shot this year. Source of History: patient Onset: several days ago. Position: chest (congestion) Quality: other (congestion ) Timing: constant Modifying Factors (Worsening): exertion Associated Symptoms: + sorethroat (resolved ), + SOB, No vomiting, No diarrhea Note: Associated Symptoms: History of COPD, History of Pneumonia. Review of Systems See HPI for pertinent positives & negatives. A total of 10 systems reviewed and were otherwise negative. Past Medical & Surgical Medical Problems: (1) BPH (benign prostatic hypertrophy) (2) CAD (coronary artery disease) (3) Dyslipidemia (4) Empyema of lung (5) Family history: Hypertension (6) Pulmonary nodule (7) Right Knee DJD (8) Syncope (9) TIA (transient ischemic attack) (10) Zenkers diverticulum Surgical Problems: (1) H/O eye surgery (2) H/O hernia repair (3) H/O prostate biopsy (4) S/P bronchoscopy (5) S/P knee replacement (6) S/P lobectomy of lung (7) S/P partial colectomy Family History FH: CAD (coronary artery disease) MOTHER FH: colon cancer FATHER Hypertension Social History Smoking Status: Never Smoker Alcohol Use: none Drug Use: none Marital Status: Housing Status: lives with family Occupation Status: employed Current/Historical Medications Scheduled Acetaminophen (Tylenol), 1,000 MG PO UD Aspirin (Aspirin Ec), 243 MG PO HS Cholecalciferol (Vitamin D3), 2,000 INTER.UNIT PO QAM Coenzyme Q10 (Ubidecarenone) (Co Q-10), 100 MG PO HS Fish Oil ([place]-3), 1 CAP PO QAM Levofloxacin (Levaquin), 500 MG PO HS Multiple Vitamins W/ Minerals (Centrum Silver Adult 50+), 1 TAB PO QAM Prednisone (Prednisone), 10 MG PO TAPER DOSE Simvastatin (Simvastatin), 40 MG PO HS Scheduled PRN Albuterol Sulfate (Proair Respiclick), 2 PUFFS INH Q4H PRN for SOB/Wheezing Fluticasone Prop/Salmeterol (Advair Diskus 250/50 60 Dose), 1 PUFF INH BID PRN for Shortness of Breath Polyethylene (Miralax), 17 GM PO DAILY PRN for Constipation Tadalafil (Cialis), 5 MG PO UD PRN for PRN Tramadol HCl (Tramadol HCl), 50 MG PO Q6H PRN for Pain Allergies Coded Allergies: Hydrocodone (Verified Allergy, Mild, RASH, HIVES, 07/12/17) Physical Exam Vital Signs Date Time Temp Pulse Resp B/P (MAP) Pulse Ox O2 Delivery O2 Flow Rate FiO2 07/12/17 13:10 75 16 132/67 90 07/12/17 12:26 72 07/12/17 12:21 69 16 133/61 88 Room Air 07/12/17 11:36 70 17 123/70 99 Nebulizer 07/12/17 11:03 36.8 73 18 141/78 93 Room Air Physical Exam GENERAL: Patient is in no acute distress. HEENT: No acute trauma, normocephalic atraumatic, mucous membranes moist, no nasal congestion, no scleral icterus. No throat erythema or exudate. NECK: No stridor, no adenopathy, no meningismus, trachea is midline. LUNGS: Diminished breath sounds bilaterally. No respiratory distress. Breath sounds equal. Scattered wheezing bilaterally. HEART: Without murmurs gallops or rubs, regular rate and rhythm. ABDOMEN: Soft, nontender, bowel sounds positive, no hernias, no peritonitis. EXTREMITIES: No cyanosis or edema, full range of motion of all the joints without pain or difficulty, no signs for acute trauma. NEUROLOGIC: Oriented x 3, no acute motor or sensory deficits, no focal weakness. SKIN: No rash, no jaundice, no diaphoresis. Medical Decision & Procedures ER Provider Diagnostic Interpretation: Radiology results as stated below per my review and radiologist interpretation: CHEST ONE VIEW PORTABLE CLINICAL HISTORY: 71 years-old Male presenting with EVALUATE RESPIRATORY DISTRESS.DYSPNEA. TECHNIQUE: Portable upright AP view of the chest was obtained. COMPARISON: 04/28/2016. FINDINGS: Atherosclerosis of the aortic arch. Cardiac silhouette normal in size. The right lung is relatively radiolucent in comparison to the left. No focal opacity. No large effusion or pneumothorax. Osseous structures normal. Upper abdomen normal. IMPRESSION: 1. No acute cardiopulmonary disease. Electronically signed by: Nguyễn Cruz M.D. 07/12/2017 11:39 AM Dictated Date/Time: 07/12/2017 11:37 AM Laboratory Results 07/12/17 11:32 Red Blood Count 4.79, Mean Corpuscular Volume 91.4, Mean Corpuscular Hemoglobin 31.5, Mean Corpuscular Hemoglobin Concent 34.5, Mean Platelet Volume 9.7, Neutrophils (%) (Auto) 85.7, Lymphocytes (%) (Auto) 9.0, Monocytes (%) (Auto) 4.6, Eosinophils (%) (Auto) 0.2, Basophils (%) (Auto) 0.5, Neutrophils # (Auto) 5.26, Lymphocytes # (Auto) 0.55, Monocytes # (Auto) 0.28, Eosinophils # (Auto) 0.01, Basophils # (Auto) 0.03 07/12/17 11:32 Test 07/12/17 11:28 07/12/17 11:32 Influenza Type A Antigen Neg for Influ A (NEG) Influenza Type B Antigen Neg for Influ B (NEG) White Blood Count 6.13 K/uL (4.8-10.8) Red Blood Count 4.79 M/uL (4.7-6.1) Hemoglobin 15.1 g/dL (14.0-18.0) Hematocrit 43.8 % (42-52) Mean Corpuscular Volume 91.4 fL (80-100) Mean Corpuscular Hemoglobin 31.5 pg (25-34) Mean Corpuscular Hemoglobin Concent 34.5 g/dl (32-36) Platelet Count 187 K/uL (130-400) Mean Platelet Volume 9.7 fL (7.4-10.4) Neutrophils (%) (Auto) 85.7 % Lymphocytes (%) (Auto) 9.0 % Monocytes (%) (Auto) 4.6 % Eosinophils (%) (Auto) 0.2 % Basophils (%) (Auto) 0.5 % Neutrophils # (Auto) 5.26 K/uL (1.4-6.5) Lymphocytes # (Auto) 0.55 K/uL (1.2-3.4) Monocytes # (Auto) 0.28 K/uL (0.11-0.59) Eosinophils # (Auto) 0.01 K/uL (0-0.5) Basophils # (Auto) 0.03 K/uL (0-0.2) RDW Standard Deviation 43.3 fL (36.4-46.3) RDW Coefficient of Variation 13.0 % (11.5-14.5) Immature Granulocyte % (Auto) 0.0 % Immature Granulocyte # (Auto) 0.00 K/uL (0.00-0.02) Anion Gap 5.0 mmol/L (3-11) Est Creatinine Clear Calc Drug Dose 56.9 ml/min Estimated GFR () 75.9 Estimated GFR (Non- 65.5 BUN/Creatinine Ratio 15.5 (10-20) Calcium Level 9.2 mg/dl (8.5-10.1) Troponin I < 0.015 ng/ml (0-0.045) Laboratory results reviewed by me. Medications Administered Medications (Trade) Dose Ordered Sig/Timothy Route Start Time Stop Time Status Last Admin Dose Admin Albuterol/ Ipratropium (Duoneb) 3 ml NOW STAT INH 07/12/17 11:13 07/12/17 11:15 DC 07/12/17 11:32 3 ML ECG Per My Interpretation Indication: chest pain (congestion ) Rate (beats per minute): 66 Rhythm: normal sinus Findings: no ectopy, other (No PVCs) ED Course 1108: The patient was evaluated in room C3. A complete history and physical exam was performed. 1113: Ordered Duoneb 3ml INH 1235: I re-evaluated the patient. The nurses will conduct an ambulatory exam to evaluate his oxygen sat while walking. 1254: The patient did well on his ambulatory exam. Reevaluated the patient. Discussed results and discharge instructions: He verbalized understanding and agreement. The patient is ready for discharge. Medical Decision The patient is a 71 year old male who presents to the ED with complaints of cough. Differential diagnoses considered include influenza or flu like symptoms , bronchitis or pneumonia, congestive heart failure, pharyngitis, or cardiac ischemia. . There is no leukocytosis or concerning anemia. No significant electrolyte abnormality or kidney failure. Chest film does not show pneumonia, pneumothorax or CHF. Influenza testing was negative. EKG shows a normal sinus rhythm, no acute ischemia. Cardiac enzyme testing 1 is not consistent with acute cardiac injury. The patient was given a DuoNeb, he is doing well and feeling improved. He was walked around the ER, his O2 saturation dropped to about 89% but quickly rebounded to the low 90s, he did not feel dyspneic. Patient has acute bronchitis with a flare of his COPD. He is on Levaquin and prednisone, both of these were started in the last 24 hours. He will continue this medication and I will have him using his albuterol more frequently. If worsening, he will return. Medication Reconcilliation Current Medication List: was personally reviewed by me Blood Pressure Screening Patient's blood pressure: Elevated blood pressure Blood pressure disposition: Elevated BP felt to be situational Impression Primary Impression: Acute bronchitis Additional Impression: COPD exacerbation Scribe Attestation The scribe's documentation has been prepared under my direction and personally reviewed by me in its entirety. I confirm that the note above accurately reflects all work, treatment, procedures, and medical decision making performed by me. Departure Information Dispostion Home / Self-Care Referrals Yaw Quiroz M.D.(CRISTIAN) (PCP) Forms HOME CARE DOCUMENTATION FORM, IMPORTANT VISIT INFORMATION Patient Instructions My [facility] [email or web address] Additional Instructions meds as prescribed by your doctor albuterol inhaler or nebulizer every 4 hours see your doctor this week for a recheck return for worsening breathing or fever or if not improving no pneumonia on xray today Problem Qualifiers
[2017-07-12 11:40] LABS: BASO % 0.5 %; BASO ABS # 0.03 K/uL (0-0.2); EOS % 0.2 %; EOS ABS # 0.01 K/uL (0-0.5); HEMATOCRIT 43.8 % (42-52); HEMOGLOBIN 15.1 g/dL (14.0-18.0); LYMPH ABS # 0.55 K/uL (1.2-3.4); MEAN CELL VOLUME 91.4 fL (80-100); MEAN CORPUSCULAR HEMOGLOBIN 31.5 pg (25-34); MEAN CORPUSCULAR HGB CONC 34.5 g/dl (32-36); MEAN PLATELET VOLUME 9.7 fL (7.4-10.4); MONO % 4.6 %; MONO ABS # 0.28 K/uL (0.11-0.59); NEUT % 85.7 %; NEUT ABS # 5.26 K/uL (1.4-6.5); PLATELET COUNT 187 K/uL (130-400); RED CELL DISTRIBUTION WIDTH SD 43.3 fL (36.4-46.3); WHITE BLOOD COUNT 6.13 K/uL (4.8-10.8)
--- NOTE | 2017-07-12 11:40 | DIAGNOSTIC IMAGING REPORT ---
CHEST ONE VIEW PORTABLE CLINICAL HISTORY: 71 years-old Male presenting with EVALUATE RESPIRATORY DISTRESS.DYSPNEA. TECHNIQUE: Portable upright AP view of the chest was obtained. COMPARISON: 04/28/2016. FINDINGS: Atherosclerosis of the aortic arch. Cardiac silhouette normal in size. The right lung is relatively radiolucent in comparison to the left. No focal opacity. No large effusion or pneumothorax. Osseous structures normal. Upper abdomen normal. IMPRESSION: 1. No acute cardiopulmonary disease. Electronically signed by: Nguyễn Cruz M.D. 07/12/2017 11:39 AM Dictated Date/Time: 07/12/2017 11:37 AM
[2017-07-12] MEDS ORDERED: ACET-1256 PO (11:47)
[2017-07-12] MEDS ORDERED: PRED10TA PO (11:51)
[2017-07-12] MEDS ORDERED: LEVO1TAB33 PO (11:51)
[2017-07-12 12:00] LABS: INFLUENZA B ANTIGEN Neg for Influ B (NEG)
[2017-07-12 12:01] LABS: BLOOD UREA NITROGEN 18 mg/dl (7-18); CALCIUM 9.2 mg/dl (8.5-10.1); CARBON DIOXIDE 28 mmol/L (21-32); CREATININE 1.13 mg/dl (0.60-1.40); GLUCOSE 137 mg/dl (70-99); POTASSIUM 3.9 mmol/L (3.5-5.1); SODIUM 136 mmol/L (136-145)
[2017-07-12 13:10] VITALS: BP 132/67; PULSE 75; O2SAT 90
== END 2017-07-12 13:10 | disposition home or self-care (01) ==
LOC: C.EDB 11:02 → C.EDC 13:10
DX: J44.0 Chronic obstructive pulmonary disease with (acute) lower respiratory infection (principal); J20.9 Acute bronchitis, unspecified; N40.0 Benign prostatic hyperplasia without lower urinary tract symptoms; I25.10 Atherosclerotic heart disease of native coronary artery without angina pectoris; E78.5 Hyperlipidemia, unspecified; R91.1 Solitary pulmonary nodule; K22.5 Diverticulum of esophagus, acquired; Z96.659 Presence of unspecified artificial knee joint; Z90.2 Acquired absence of lung [part of]; Z90.49 Acquired absence of other specified parts of digestive tract; Z88.5 Allergy status to narcotic agent; Z82.49 Family history of ischemic heart disease and other diseases of the circulatory system; Z80.0 Family history of malignant neoplasm of digestive organs; Z79.82 Long term (current) use of aspirin

== ENCOUNTER → 2017-07-16 | Outpatient (CLI) | payer BC ==
[~2017-07-16] MED LIST changes: +ACET-1256 PO; -FLM4 PO; +LEVO1TAB33 PO; +PRED10TA PO
--- NOTE | 2017-07-16 13:35 | DIAGNOSTIC IMAGING REPORT ---
(CHEST FOR PE) ANGIO WITH CLINICAL HISTORY: 71 years-old Male presenting with ^SOB, COUGH, CHEST DISCOMFORT. TECHNIQUE: Multidetector CT angiography of the chest was performed after administration of intravenous contrast. 3-D volumetric and/or maximum intensity projection (MIP) images were subsequently reconstructed for review. IV contrast: 94 mL of Optiray 320. A dose lowering technique was used consistent with the principles of ALARA (as low as reasonably achievable). COMPARISON: 10/11/2015. CT DOSE (mGy.cm): The estimated cumulative dose is 482.31 mGycm. FINDINGS: Psychologist Social topogram: Unremarkable. Pulmonary vasculature: The study is adequate for assessment of the pulmonary vascular tree. No filling defect within the pulmonary arteries to suggest embolus. Main pulmonary artery is not enlarged. No flattening of the interventricular septum. No intracardiac filling defect. No reflux of contrast into the hepatic veins. Remaining chest: On soft tissue windows, normal thyroid and thoracic inlet. No axillary, supraclavicular, hilar, or mediastinal lymphadenopathy. Atherosclerosis of the aorta. Normal heart size. Coronary artery calcification. No pericardial or pleural effusion. Upper abdomen normal. On lung windows, the right lower lobe is hyperinflated. Severe volume loss of the right middle lobe, which has increased from prior exam. The right upper lobe is not apparent and may be surgically absent. Mild bronchial wall thickening diffusely. Motion artifact slightly degrades evaluation of lung parenchyma. Allowing for this, 4 mm groundglass nodule noted at the left upper lobe (series 4 image 248), unchanged since 2016. Patchy centrilobular groundglass opacities in the posterior basal right lower lobe. Central airways patent. On bone windows, old right posterior rib fractures evident. IMPRESSION: 1. No evidence of pulmonary embolus. 2. Groundglass centrilobular nodules in the posterior basal right lower lobe consistent with bronchiolitis, likely infectious bronchiolitis versus aspiration. 3. Severe volume loss in the right middle lobe, increased since prior. 4. The right upper lobe may be absent on a surgical basis. 5. Stable 3 mm left upper lobe groundglass nodule. Electronically signed by: Nguyễn Cruz M.D. 07/16/2017 1:34 PM Dictated Date/Time: 07/16/2017 1:23 PM
== END | disposition home or self-care (01) ==
LOC: C.CTS 12:40
PROVIDERS: ATTEND Physician Assistant
DX: R07.81 Pleurodynia (principal); R05 Cough

== ENCOUNTER → 2017-07-23 | Outpatient (CLI) | payer BC ==
[~2017-07-23] MED LIST changes: +DOXY100C2 PO; +MISCTAB27 PO
[2017-07-23 18:58] LABS: BASO % 0.1 %; BASO ABS # 0.01 K/uL (0-0.2); HEMATOCRIT 44.9 % (42-52); HEMOGLOBIN 15.4 g/dL (14.0-18.0); IG# 0.11 K/uL (0.00-0.02); LYMPH % 9.3 %; LYMPH ABS # 1.32 K/uL (1.2-3.4); MEAN CELL VOLUME 90.5 fL (80-100); MEAN CORPUSCULAR HGB CONC 34.3 g/dl (32-36); MEAN PLATELET VOLUME 10.2 fL (7.4-10.4); MONO % 2.6 %; MONO ABS # 0.37 K/uL (0.11-0.59); NEUT % 87.2 %; NEUT ABS # 12.37 K/uL (1.4-6.5); PLATELET COUNT 334 K/uL (130-400); RED CELL DISTRIBUTION WIDTH CV 13.2 % (11.5-14.5); WHITE BLOOD COUNT 14.18 K/uL (4.8-10.8)
[2017-07-23 19:10] LABS: PTT PATIENT 24.2 SECONDS (21.0-31.0)
[2017-07-23 19:19] LABS: BLOOD UREA NITROGEN 24 mg/dl (7-18); CALCIUM 8.9 mg/dl (8.5-10.1); CARBON DIOXIDE 27 mmol/L (21-32); CREATININE 1.07 mg/dl (0.60-1.40); GLUCOSE 205 mg/dl (70-99); POTASSIUM 4.6 mmol/L (3.5-5.1); SODIUM 139 mmol/L (136-145)
== END | disposition home or self-care (01) ==
LOC: C.LAB 17:31
PROVIDERS: ATTEND Physician Assistant
DX: R05 Cough (principal)

== ENCOUNTER → 2017-07-28 | Day surgery (SDC) | payer BC ==
[~2017-07-28] VITALS: Ht 170.2 cm; Wt 77.3 kg
[~2017-07-28] MED LIST changes: +FENTANYL CITRATE INJ 50 MCG/1 ML 2 ML VIAL IV ONE; +LIDOCAINE 4% INH SOLN 4 ML BTL TOP ONE; +LIDOCAINE HCL 2% LOCAL 50ML VIAL INSTIL ONE; +LIDOCAINE VISCOUS 2% 100ML TOP ONE; +MIDAZOLAM HCL 5 MG/ML 1 ML VIAL IV ONE
[2017-07-28 06:53] VITALS: BP 125/71; PULSE 55; TEMP 36.5; O2SAT 97; Ht 170.2 cm; Wt 77.3 kg
--- NOTE | 2017-07-28 08:14 | Pre Sedation Assessment ---
Pre Sedation Assessment General Date of Sedation: Jul 28, 2017. Vital Signs Past 12 Hours Date Time Temp Pulse Resp B/P (MAP) Pulse Ox O2 Delivery O2 Flow Rate FiO2 07/28/17 06:53 36.5 55 18 125/71 (89) 97 Room Air Pre-Sedation Airway Assessment Smoking Status: Former Smoker Hx of Sleep Apnea: No Short Thick Neck: No Thyro-mental Distance: > 3 Finger Breadths Oral Cavity: Capped Teeth Mallampati Classification: Class II ASA Classification: Class II NPO Status Date of Last Intake of Fluids: Jul 27, 2017 Time of Last Intake of Fluids: 2099 Date of Last Intake of Solids: Jul 27, 2017 Time of Last Intake of Solids: 2099 Procedure Planning Contraindications for Sedation: None Current Medications Reviewed: Yes Notes The planned sedation has been discussed with the patient. Informed Consent was obtained. I have identified the patient, determined the appropriateness of sedation and have assessed the patient immediately prior to the procedure. All medicine(s) and interventions are by my order.
--- NOTE | 2017-07-28 08:14 | History & Physical Bridge Note ---
H&P Re-Evaluation Bridge Note: I have examined the patient, reviewed the History & Physical and in the interval since the performance of the History & Physical I have noted the following changes of clinical significance: No changes noted
[2017-07-28 09:03] VITALS: BP 122/69; PULSE 64; TEMP 36.4; O2SAT 97
--- NOTE | 2017-07-28 09:06 | [facility] Operative Report ---
Operative Report Operative Date Jul 28, 2017. Pre-Operative Diagnosis CHRONIC BRONCHITIS Post-Operative Diagnosis CHRONIC BRONCHITIS Procedure(s) Performed Bronchoscopy Surgeon Dr. Miller Divider Operator Surgeon(s) None Findings Chronic Mucopurulent Bronchitis Specimens RIGHT AND LEFT WAASHING Complication(s) None Disposition I attest to the content of the Intraoperative Record and any orders documented therein. Any exceptions are noted below.
--- NOTE | 2017-07-28 09:06 | Post Sedation Assessment ---
Post Sedation Assessment General Date of Sedation Jul 28, 2017. Vital Signs: Vital Signs Past 12 Hours Date Time Temp Pulse Resp B/P (MAP) Pulse Ox O2 Delivery O2 Flow Rate FiO2 07/28/17 08:55 63 22 117/65 98 Nasal Cannula 4 07/28/17 08:50 61 14 119/68 98 Nasal Cannula 4 07/28/17 08:45 61 14 137/79 98 Mask 4 07/28/17 08:40 67 14 131/70 98 Mask 4 07/28/17 08:35 61 16 138/68 100 Mask 4 07/28/17 08:30 61 16 140/80 100 Mask 4 07/28/17 08:25 59 16 143/76 100 Mask 4 07/28/17 08:20 71 16 154/78 Room Air 07/28/17 06:53 36.5 55 18 125/71 (89) 97 Room Air Post Procedure Recovery Score Activity: (2) Moves 4 extremities * Respiration: (2) Deep breath/cough Circulation: (2) +/-20% PreAnes Value Consciousness: (1) Arouseable (by name) Oxygen Saturation: (1) O2 needed for >90% Post Anesthesia Score: 8 Discharge Sedation Level of Care: Fast Track Phase II Post Sedation Plan On clinical assessment, the patient appears to have tolerated the sedation without complications. Patient is recovering as anticipated. Patient will continue to be monitored by nursing and may be discharged when sedation discharge criteria are met per below protocol. Upon Completions of procedure and additional 15 minutes continue every 5 minute vital signs and the P.A.R. score; then discharge to a Phase I or Fast Track to Phase II per the following guidelines: * Discharge Patient to appropriate Phase II area if PAR is 8 or greater or return to pre- procedure baseline. The post - procedure orders will be as directed. * If PAR score is less than 8 or not return to pre-procedure baseline then patient will follow Phase I monitoring till PAR is reached for Phase II. The Phase I may be done in procedure room or may call to secure a Phase I area. * If naloxone or flumazenil are used for reversal, hold in Phase I for an additional 60 -120 minutes before discharge to Phase II. Please call the Sedation Physician to re-evaluate and complete post-note for discharge to Phase II area. Do NOT discharge from procedure sedation or Phase 1 until post- sedation evaluation note is complete by procedure /sedation MD Sedation Discharge Instructions to be given to the patient at discharge to home.
--- NOTE | 2017-07-28 09:09 | Discharge Instructions ---
Discharge Instructions Date of Service Jul 28, 2017. Admission Reason for Admission: Cough,Sob Discharge Discharge Diagnosis / Problem: Chronic Mucopurulent Bronchitis Discharge Goals Goal(s): Diagnostic testing Activity Recommendations Activity Limitations: resume your previous activity Lifting Limitations: none Exercise/Sports Limitations: none May Resume Sexual Activity: when tolerated Shower/Bathe: no limitations Driving or Machine Use: resume 1 day after discharge none . Instructions / Follow-Up Instructions / Follow-Up ACTIVITY RECOMMENDATIONS: * Rest today, resume normal activity tomorrow. * Do not drive today. SPECIAL CARE INSTRUCTIONS: * Call your physician if you experience any chest or shoulder pain, fever, coughing, spitting up blood (more than 2 teaspoons) or excessive shortness of breath. * Remove dressing from IV site (where needle was placed into the vein) after 2 hours. Apply a warm, moist compress to site if irritation occurs. Call physician if site becomes red or painful to touch. FOLLOW UP VISIT: * Keep any scheduled doctor appointments. Current Hospital Diet Patient's current hospital diet: regular Discharge Diet Recommended Diet: Regular Diet Fluid Restriction: None Procedures Procedures Performed: Bronchoscopy Pending Studies Studies pending at discharge: no Medical Emergencies . Who to Call and When: Medical Emergencies: If at any time you feel your situation is an emergency, please call 911 immediately. . Non-Emergent Contact Non-Emergency issues call your: Water Project Engineer Call Non-Emergent contact if: temperature is above 101 . . "Provider Documentation" section prepared by Nikos Miller. .
[2017-07-28 09:21] VITALS: BP 114/65; PULSE 62; O2SAT 97
[2017-07-28 09:47] VITALS: BP 134/76; PULSE 62; O2SAT 97
--- NOTE | 2017-07-28 10:00 | OPERATIVE REPORT ---
DATE OF OPERATION: 07/28/2017 TIME: 0800 PROCEDURE: Fiberoptic bronchoscopy with bronchoalveolar lavage. INDICATIONS: Persistent chest congestion in a patient with previous lung resection/history of lung abscess/status repair x2 of a Zenker's diverticulum. ANESTHESIA PREOPERATIVELY: None. ANESTHESIA DURING THE PROCEDURE: 5 mg IV Versed, 25 mcg IV fentanyl, 20 mL 2% Xylocaine spray above and below the cords, 4% viscous Xylocaine gel. PROCEDURE IN DETAIL: The fiberoptic bronchoscope was inserted into the left naris with minimal difficulty and passed to the level of the true vocal cords. The cords appear to approximate normally with phonation without evidence of lesions or paralysis. The area was anesthetized. The scope was then introduced into the trachea and then right and left tracheobronchial tree. The trachea was within normal limits. The ciro was sharp, it showed some mild mucosal irregularity, but without lesions seen. The left mainstem bronchus was explored initially and no endobronchial lesion was seen. The left upper lobe, the apical-posterior and anterior segments, lingular subdivision with the superior and inferior segments, and all basilar segments of the left lower lobe were found to be free of endobronchial lesions. At the takeoff of the right mainstem bronchus, perhaps a centimeter below the takeoff, there was marked narrowing of the right main stem bronchus with previous suture line appearing intact. I was able to pass the scope through the narrowed right main stem bronchus and there was evidence for endoscopic dynamic airway collapse or EDAC of the posterior membrane about 80%-90% of its usual customary diameter in circumference. The right middle lobe, the medial lateral segments, and all basilar segments right lower lobe were found to be free of endobronchial lesions, but the superior segment showed fish-mouthing with volume loss, but no endobronchial lesion was seen. A moderate amount of mucopurulent secretion was lavaged from the right mainstem bronchus, right middle lobe, and right lower lobe until clear. No brushings or biopsies were deemed necessary. The procedure was then terminated. The patient was given nebulizer treatment with Xopenex 1.25 mg, then transferred to the medical treatment unit hemodynamically stable with no signs of respiratory compromise. We will await microbiological and cytologic examination of the bronchial washings. I attest to the content of the Intraoperative Record and any orders documented therein. Any exception s are noted below.
[2017-07-28 10:17] VITALS: BP 128/68; PULSE 57; O2SAT 96
[2017-07-28 10:51] VITALS: BP 132/78; PULSE 62; TEMP 36.5; O2SAT 95
[2017-07-30 11:03] LABS: HERPES SIMPLEX VIRUS CULT NOT ISOLATED (NOT ISOLATED)
== END | disposition home or self-care (01) ==
LOC: C.ACU 06:26
PROVIDERS: ATTEND Internal Medicine Pulmonary Disease
DX: R09.89 Other specified symptoms and signs involving the circulatory and respiratory systems (principal); Z90.2 Acquired absence of lung [part of]; J44.9 Chronic obstructive pulmonary disease, unspecified; I10 Essential (primary) hypertension; E78.5 Hyperlipidemia, unspecified; Z79.82 Long term (current) use of aspirin; Z79.899 Other long term (current) drug therapy; Z98.890 Other specified postprocedural states

== ENCOUNTER 2018-06-12 00:08 | Observation (INO) ==
[2018-06-12 00:52] LABS: Basophils # (auto) 0.04 K/uL (0-0.2); Basophils % (auto) 0.7 %; Eosinophils % (auto) 3.6 %; Hematocrit (blood only) 44.3 % (42-52); Hemoglobin 14.9 g/dL (14.0-18.0); Immature Granulocytes # (auto) 0.01 K/uL (0.00-0.02); Immature Granulocytes % (auto) 0.2 %; Lymphocytes # (auto) 2.06 K/uL (1.2-3.4); Lymphocytes % (auto) 37.3 %; Mean Corpuscular Hgb Conc 33.6 g/dL (32-36); Mean Corpuscular Volume 90.8 fL (80-100); Mean Platelet Volume 9.6 fL (7.4-10.4); Monocytes # (auto) 0.44 K/uL (0.11-0.59); Neutrophils # (auto) 2.77 K/uL (1.4-6.5); Neutrophils % (auto) 50.2 %; Platelet Count 252 K/uL (130-400); RDW Coefficient of Variation 13.2 % (11.5-14.5); RDW Standard Deviation 43.4 fL (36.4-46.3); Red Blood Count 4.88 M/uL (4.7-6.1); White Blood Count 5.52 K/uL (4.8-10.8)
[2018-06-12 01:13] LABS: Blood Urea Nitrogen 26 mg/dl (7-18); Calcium 8.8 mg/dl (8.5-10.1); Carbon Dioxide 30 mmol/L (21-32); Chloride 105 mmol/L (98-107); Creatinine Clr Calc Pharmacy 55.2 ml/min; Est GFR (African American) 66.1; Glucose 97 mg/dl (70-99); Sodium 139 mmol/L (136-145)
[2018-06-12 01:18] LABS: Troponin I < 0.015 ng/ml (0-0.045)
[2018-06-12] MEDS ORDERED: ACETAMINOPHEN 325 MG TAB PO PRN (03:09)
[2018-06-12] MEDS ORDERED: ONDANSETRON INJ 2 MG/ML 2 ML VIAL IV PRN (03:09)
[2018-06-12] MEDS ORDERED: ALUMINUM/MAGNESIUM SUSP 30 ML UDC PO PRN (03:09)
[2018-06-12] MEDS ORDERED: NITROGLYCERIN SL 0.4 MG/TAB TAB SL PRN (03:09)
[2018-06-12] MEDS ORDERED: ALBUTEROL HFA 8 GM INHALER INH PRN (03:30)
--- NOTE | 2018-06-12 03:46 | Emergency Department Note ---
Entered by Chanell Patel acting as a scribe for Lamberto Wells MD ED Provider Note Name: Boston Guerra Age: 72 M Arrives Via: Private vehicle Informant: Patient CC: Chest pain HPI: A 72 year old male arrives for evaluation of persistent chest pain starting 1 hour ago. The patient reports that his chest feels tight. He states that this tightness is radiating to his neck. He notes that he recently started taking Diclofenac and ever since his stomach has been hurting. He adds that movement does not worsen his symptoms and that rest does not improve his symptoms. The patient reports that he had knee surgery 3 months ago. He states that he takes Aspirin daily and that he took a full dose of his Aspirin this evening. He denies weakness, headaches, back pain, shortness of breath, nausea and vomiting and black or bloody stools. He denies alcohol and drug use. ROS: See above HPI for pertinent positives & negatives. A total of 10 systems reviewed and were otherwise negative. Past Medical History: COPD, Empyema of lung, Zenkers diverticulum, CAD, BPH, Dyslipidemia, TIA. Past Surgical History: Broncoscopy, Knee replacement, Prostate biopsy, Partial colectomy, Hernia repair, Eye surgery, Lobectomy of lung. Family History: Heart disease. Social History: Feels safe at home. Former smoker. Home Medications: ProAir RespiClick 2 puff INH, Aspirin 325 mg PO, Celecoxib 200 mg PO, Vitamin D3 2000 PO, Co Q-10 100 mg PO, Lansoprazole 30 mg PO, Multivitamin 50 Plus 1 tab PO, Oxycodone 5 mg PO, Simvastatin 40 mg PO, Cialis 2.5 mg PO, Flomax 0.4 mg PO, Tylenol Extra Strength 1000 mg PO. Allergies Hydrocodone. Physical: Vitals: BP: 137/74, Pulse: 64, Resp: 20, Temp: 97.7F, O2 Sat: 96, Delivery: Room Air Exam: GENERAL: Patient is mildly anxious appearing and in no acute distress. EYES: No scleral icterus, unremarkable pupils. ENT: Mucous membranes moist, no nasal congestion. NECK: No masses appreciated, no meningismus, trachea is midline. RESPIRATORY: No dyspnea. Clear to auscultation and equal bilaterally. No wheeze, no rhonchi. CARDIOVASCULAR: Regular rate and rhythm. No murmurs, rubs, gallops appreciated. GASTROINTESTINAL: Abdomen soft, non-tender, no peritonitis. Bowel sounds positive. No masses appreciated. BACK: No midline tenderness, no CVA tenderness EXTREMITIES: Normal motion all extremities, no cyanosis. Edema to right lower leg - patient states is chronic. No calf tenderness. Well healing anterior right knee incision. NEUROLOGIC: Alert and oriented, no acute motor or sensory deficits, no focal weakness, cranial nerves grossly intact. SKIN: No rash, no jaundice, no diaphoresis. ED Course: 0028: Prior Medical Record, Triage/Nursing Notes, Medications, Allergies reviewed by Me. The patient was evaluated in room A9B, and a complete history and physical examination were performed. 0142: I reevaluated the patient at this time who is agreeable to hospitalization. 0150: I reviewed the patient's case with Dr. Stan Roberts hospitalist. He will evaluate the patient for further management. Vital Signs: reviewed and remarkable for wnl Labs: Reviewed and remarkable for normal cbc, bmp, trop Interventions: [place] Imaging: X ray results are stated below per my interpretation: Chest: 1 view: No infiltrate, no effusion, normal cardiac border. Left lower atelectasis. EKG: See Below Consults: Dr Stan Roberts Hospitalist for further evaluation Blood pressure: Elevated - Referred to Hospitalist Disposition: Hospitalization Differentials: Etiologies such as shingles, musculoskeletal pain, pericarditis, myocarditis, cardiac ischemia, pericardial tamponade, pneumonia, pneumothorax, pleural effusion, hemothorax, pleurisy, aortic pathology, pulmonary embolism, intra-abdominal process, as well as others were considered. Medical Decision Makin yr old male arrives for evaluation of substernal chest pressure radiating to neck now resolved. Lasted ~ 1hr prior to arrival but resolved by time here. ASA prior to arrival. Patient with normal EKG and negative Trop at this time. CXR OK. No evidence of PE, Dissection, PNA, nor evidence of intra-abdominal infection/cause. He did recently take a few days of diclofenac which leads me to believe this is GERD related, but with his history of smoking, DLP, TIA, and family members with CAD, I feel cardiac rule out required. I did discuss pros/cons staying in hospital and both he and would like him to stay. Patient stable throughout without symptoms. Impression: Substernal Chest Pain Lamberto Russell, MD The scribe's documentation has been prepared under my direction and personally reviewed by me in its entirety. I confirm that the note above accurately reflects all work, treatment, procedures, and medical decision making performed by me. Impression & Plan Substernal chest pain Past Med/Surg History Medical History COPD (chronic obstructive pulmonary disease) Empyema of lung (Chronic) "right side s/p sleeve resection in 1992" Zenkers diverticulum (Chronic) "s/p repair" CAD (coronary artery disease) (Chronic) Pulmonary nodule (Chronic) BPH (benign prostatic hypertrophy) (Chronic) Dyslipidemia (Chronic) TIA (transient ischemic attack) (Chronic) "2004" Surgical History S/P bronchoscopy (Chronic) S/P knee replacement (Chronic) "right" H/O prostate biopsy (Chronic) S/P partial colectomy (Chronic) "at [facility] for recurrent diverticulitis" H/O hernia repair (Chronic) H/O eye surgery (Chronic) S/P lobectomy of lung (Chronic) "1992 for empyema" Family History Other Family history non-contributory Heart disease Social History Preferred Language: Lao Communication Ability: Effective Residential Real Estate Agent Required: No Beliefs That Will Affect Care: None Current Living Situation: Spouse Other Information That Helps Us Care for You: No Feels Safe at Home: Yes Safety Concerns: Feels Safe At This Time Smoking Status: Former smoker Hx Alcohol Use: No Hx Substance Use: No Results & Data Vital Signs Vital Signs - 24 hr 06/12/18 00:10 06/12/18 01:30 06/12/18 02:47 Temperature 36.5 C Temperature Source Oral Sepsis Recent Fever Within 48 Hours No Sepsis Action Taken by Nursing No Action Required Pulse Rate 64 60 Pulse Rate [Right] 60 Respiratory Rate 20 16 16 Respiratory Effort / Characteristics Non-Labored Respiratory Depth Normal Respiratory Pattern Blood Pressure 157/80 H 129/76 Blood Pressure [Right Arm] 137/74 Blood Pressure Mean 105 Blood Pressure Mean [Right Arm] 95 Pulse Oximetry 96 95 97 Oxygen Delivery Method Room Air Room Air Room Air 06/12/18 03:15 Temperature 36.6 C Temperature Source Oral Sepsis Recent Fever Within 48 Hours Sepsis Action Taken by Nursing Pulse Rate Pulse Rate [Right] 61 Respiratory Rate 18 Respiratory Effort / Characteristics Non-Labored Spontaneous Respiratory Depth Normal Respiratory Pattern Regular Blood Pressure Blood Pressure [Right Arm] 154/80 H Blood Pressure Mean Blood Pressure Mean [Right Arm] 104 Pulse Oximetry 95 Oxygen Delivery Method Room Air Home Medications Current Medication List: was personally reviewed by me Laboratory Data Attestation: I reviewed the patient's lab results. Result diagrams: 06/12/18 00:20 06/12/18 00:20 Lab Results 06/12/18 06/12/18 Range/Units 00:20 00:20 WBC 5.52 (4.8-10.8) K/uL RBC 4.88 (4.7-6.1) M/uL Hgb 14.9 (14.0-18.0) g/dL Hct 44.3 (42-52) % MCV 90.8 (80-100) fL MCH 30.5 (25-34) pg MCHC 33.6 (32-36) g/dL RDW Std Deviation 43.4 (36.4-46.3) fL RDW Coeff of Ora 13.2 (11.5-14.5) % Plt Count 252 (130-400) K/uL MPV 9.6 (7.4-10.4) fL Immature Gran % (Auto) 0.2 % Neut % (Auto) 50.2 % Lymph % (Auto) 37.3 % [place] % (Auto) 8.0 % Eos % (Auto) 3.6 % Baso % (Auto) 0.7 % Immature Gran # (Auto) 0.01 (0.00-0.02) K/uL Neut # (Auto) 2.77 (1.4-6.5) K/uL Lymph # (Auto) 2.06 (1.2-3.4) K/uL [place] # (Auto) 0.44 (0.11-0.59) K/uL Eos # (Auto) 0.20 (0-0.5) K/uL Baso # (Auto) 0.04 (0-0.2) K/uL Sodium 139 (136-145) mmol/L Potassium 4.0 (3.5-5.1) mmol/L Chloride 105 (98-107) mmol/L Carbon Dioxide 30 (21-32) mmol/L Anion Gap 4.0 (3-11) BUN 26 H (7-18) mg/dl Creatinine 1.26 (0.6-1.4) mg/dl Est Cr Clr Drug Dosing 55.2 ml/min Est GFR ( Amer) 66.1 Est GFR (Non-Af Amer) 57.0 BUN/Creatinine Ratio 21.0 H (10-20) Glucose 97 (70-99) mg/dl Calcium 8.8 (8.5-10.1) mg/dl Troponin I < 0.015 (0-0.045) ng/ml Imaging Data Attestation: I personally reviewed and interpreted this imaging study as follows: ECG Data Attestation: I personally reviewed and interpreted this ECG as follows: Indication: chest pain Rate (beats per minute): 64 Rhythm: normal sinus Findings: + other (QTC = 402); no acute ischemic change and no ectopy Comparison ECG Date: from (07/2017) Change: no significant change Blood Pressure Blood Pressure Findings: Normal blood pressure Blood Pressure Disposition: further management by hospitalist Discharge Plan Visit Data *Final* Discharge Date/Time: 06/12/18 02:47 Chief Complaint: Abdominal Pain Stated Complaint: TIGHT STOMACH,FEELING DIFFERENT,NECK PAIN ED Provider: Lamberto Wells Discharge Problem: Substernal chest pain Patient Disposition: Admitted As Inpatient Discharge Instructions Interventions: ED Discharge Assessment Last Done: 06/12/18 02:47 The scribe's documentation has been prepared under my direction and personally reviewed by me in its entirety. I confirm that the note above accurately reflects all work, treatment, procedures, and medical decision making performed by me.
[2018-06-12 03:51] LABS: Chol HDL Ratio 4; Cholesterol 179 mg/dl (0-200); HDL Cholesterol 43 mg/dl; LDL Cholesterol Calculated 99 mg/dl; Triglycerides 183 mg/dl (0-150); Troponin I < 0.015 ng/ml (0-0.045); VLDL Cholesterol 37 mg/dl
--- NOTE | 2018-06-12 05:10 | History and Physical Report ---
DATE OF ADMISSION: 06/12/2018 CHIEF COMPLAINT: Chest pain. HISTORY OF PRESENT ILLNESS: This is a 72-year-old male with past medical history significant for hyperlipidemia, COPD, CAD, hypertension, BPH, degenerative disease of cervical disc, history of TIA, Zenker diverticulum, history of lung abscess, presents with chest pain. The patient says he was going to sleep tonight and at the time when he was sleeping, lying on the bed, he felt , abdominal discomfort and also pressure-like severe pain in his throat region. He thinks mostly this is from GERD, but it bothered him and he took 3 aspirins and his brought him to the hospital. By the time they came to hospital, the pain was almost subsided. Currently, does not have any abdominal pain and does not have any chest pain. When he was having pain, he has also had some palpitations but denies unusual shortness of breath, or nausea or sweating, no dizziness. Currently, resting comfortable and hemodynamically stable. He is currently symptom free. Denies any headache, no blurred vision. No earache, no runny nose, no sore throat, no difficulty swallowing. No cough, no fever, no chills. Because of his lung condition, he gets short of breath when he climbs steps on and off. No abdominal pain. Appetite is okay. No feelings of hot or cold. Normal bowel and bladder movements. No blood in the stools or black stools, no hematuria, no burning micturition. No swelling of the legs. No rash, no easy bruising or bleeding. ALLERGIES: VICODIN. PAST MEDICAL HISTORY: As mentioned above. PAST SURGICAL HISTORY: Right total knee arthroplasty, biopsy of prostate, bronchoscopy with bronchial lavage, colonoscopy, partial colectomy, repair of Zenker's diverticulum, repair of a right inguinal hernia, status post single lobectomy, vitrectomy for macular disease. MEDICATIONS: The patient on metoprolol succinate 50 mg p.o. t.i.d., aspirin 81 mg p.o. daily, Zocor 40 mg p.o. daily, Flomax 0.4 mg p.o. daily, Advair Diskus 250/50 mcg one inhalation b.i.d., MiraLAX daily p.r.n., vitamin D 1000 unit p.o. b.i.d., Coenzyme Q10 1 capsule daily, [place] 3 1000 mg p.o. 2 tablets in a.m., albuterol 2 puffs 4 times a day, multivitamin 1 tablet daily. FAMILY HISTORY: Significant for father had colon cancer. Mother had heart disorder, hypertension. Brother has heart disorder. SOCIAL HISTORY: , quit smoking in 1981. Prior to that smoked 1 pack a day for 23 years. No alcohol use, no drug use. REVIEW OF SYMPTOMS: As per HPI. Rest of review of symptoms negative. PHYSICAL EXAMINATION: GENERAL: The patient is of moderate built, not in acute distress. VITAL SIGNS: Temperature 36.5, pulse 60, respiratory rate 16, blood pressure 137/74, oxygen 95% room air. HEENT: No pallor, no icterus. Pupils equal, round, and react to light. NECK: No JVD, no neck masses, no carotid bruit. CARDIOVASCULAR: S1, S2 heard, regular rate and rhythm, no murmur, no gallop. RESPIRATORY SYSTEM: Normal AP diameter. No accessory muscle use. No wheezing, no crackles. ABDOMEN: Soft, bowel sounds present. Nontender. No distention. CENTRAL NERVOUS SYSTEM: Cranial nerves II-XII grossly intact. Nonfocal. EXTREMITIES: No edema, no erythema. LABORATORIES: WBC 5.5, hemoglobin 14.9, hematocrit 44.3, platelets 252. Sodium 139, potassium 4, chloride 105, bicarbonate 30, BUN 26, creatinine 1.2, serum glucose 97, calcium 8.8. Troponin I less than 0.015. Chest x-ray, no acute findings seen. EKG: Normal sinus rhythm, rate of 64, no acute ST changes seen. ASSESSMENT AND PLAN: A 72-year-old male who presents with chest pain. 1. Chest pain, rule out acute coronary syndrome. Initial workup is negative. We will follow serial cardiac enzymes, echocardiogram. The patient had history of status post cardiac catheterization in 2016 showed some lesions in the diagonal and right coronary artery. There is a plan for intervention if he does not improve with medical management. Doctors put him on Toprol and Imdur, but seems to be not on those medications. We will consult cardiology doctor, Dr. Noble as he was supposed to follow with this month. We will keep him n.p.o. for now. Await further input. 2. History of coronary artery disease. On aspirin and Zocor. 3. History of transient ischemic attack, on aspirin, Zocor. Follow lipid profile. 4. History of benign prostatic hyperplasia. The patient is on Flomax. 5. History of chronic obstructive pulmonary disease. Continue home inhalers. Currently stable. 6. History of hypertension, not on any medication. Follow the blood pressure while in the hospital. 7. History of hyperlipidemia, on statin. We will follow the lipid profile. 8. Deep venous thrombosis prophylaxis, sequential compression devices for now. DISPOSITION: Closely monitoring in tele floor. Level I full code. MTDD
--- NOTE | 2018-06-12 06:31 | XRay Report ---
XR chest 1V portable HISTORY: 72 years-old Male CP acute atypical chest pain COMPARISON: Chest radiograph 01/19/2018, chest CT 05/04/2018 TECHNIQUE: Portable AP view of the chest FINDINGS: Cardiomediastinal and hilar silhouettes are within normal limits. Calcification the thoracic aortic a rch. Mild emphysematous changes redemonstrated along with mild right apical pleural parenchymal scarr ing. There is no pneumothorax, pleural effusion, focal airspace consolidation or overt pulmonary christine a. Subsegmental left basilar opacities are suggestive of atelectasis/scarring. Degenerative changes o f the shoulders and spine. IMPRESSION: Mild emphysema without acute process. The above report was generated using voice recognition software. It may contain grammatical, syntax o r spelling errors. Electronically signed by: Boni Laguerre M.D. 06/12/2018 6:30 AM
[2018-06-12] MEDS ORDERED: CEROVITE ADV FORMULA TAB PO SCH (09:00)
[2018-06-12] MEDS ORDERED: ASPIRIN 81 MG ECTAB PO SCH (09:00)
[2018-06-12] MEDS ORDERED: CHOLECALCIFEROL 1,000 UNITS TAB PO SCH (09:00)
[2018-06-12] MEDS ORDERED: FLUTICASONE/SALMETEROL 250/50 (ADVAIR) 14 PUFF/1 INHALER INH SCH (09:00)
[2018-06-12] MEDS ORDERED: TAMSULOSIN HCL 0.4 MG CAP PO SCH (09:00)
--- NOTE | 2018-06-12 10:01 | Cardiology Consultation ---
Date of Consultation June 12, 2018 Assessment & Plan (1) CAD (coronary artery disease): 2. Chest pain 3. Hypertension 4. Dyslipidemia 5. Osteoarthritis with knee pain 6. COPD Patient has a history of moderate nonobstuctive CAD on cardiac cath in 2016. 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 About one week ago he developed GI upset after being started on Diclofenac for his knee pain. Last evening in addition to his GI symptoms he had upper chest/throat discomfort. His troponin remains undetectable, EKG without acute changes and echo demonstrates normal LV function and wall motion. He is currently chest pain free and hemodynamically stable. On exam he is well perfused without signs of heart failure. We feel his chest pain was likely GI in nature rather than ACS. Recommend he remain off Diclofenac. We did discuss the option of performing a stress test although this may be positive given his known disease. The patient prefers to hold off on stress testing at this time which we think is reasonable. However for any recurrent symptoms would consider ischemic workup. History of Present Illness Reason for Consultation: Chest pain Attending Physician: Aziza Villa MD History of Present Illness Mr. Guerra is a 72 year old male with a medical history significant for CAD (moderate RCA, severe proximal diagonal disease on cath 2016), hypertension, dyslipidemia, COPD, history of lung abscess, history of Zenker diverticulum. The patient's cardiac history dates back to 2016 when he was seen by cardiology for exertional dyspnea. He underwent cardiac catheterization which demonstrated 90% proximal diagonal stenosis, 50% distal left circumflex stenosis and 70% pro ximal to mid RCA stenosis. Medical therapy was recommended. He is not currently on any antianginals, he did not tolerate beta blockers due to bradycardia and Imdur caused fatigue. About one week ago he was initiated on Diclofenac for right knee pain he has been having since his knee replacement in March. A few days after starting the Diclofenac he developed GI symptoms including abdominal discomfort and nausea. Last evening around 11 pm after lying down in bed he additionally developed upper chest/throat discomfort he describes as a pressure. He had no associated nausea, diaphoresis or dyspnea. He presented to the emergency department for evaluation. His discomfort lasted for a total of about 1 hour before resolving. Troponins have been undetectable and EKG without acute changes. He has not had any recurrence of his chest discomfort and reports that his abdominal pain/nausea is improving. 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 He denies exertional chest pain. He has chronic exertional dyspnea related to his COPD which is unchanged. No orthopnea, PND, edema, palpitations, lightheadedness, near syncope or syncope. ROS: 10 point review of systems otherwise negative unless stated in HPI. Family Hx: Mother with coronary stent placement, in 90s. Father of colon cancer in 50s. Older brother with CO in his 70s. Social Hx: and lives with on their farm in [place]. 3 children. Previous smoker, quit 1991. No alcohol or drug use. Allergies Allergy/AdvReac Type Severity Reaction Status Date / Time hydrocodone Allergy Mild RASH, HIVES Verified 06/12/18 01:49 Home Medications Home Medications Medication Instructions Recorded Confirmed Type Multivitamin 50 Plus 1 tab PO DAILY 03/15/18 06/12/18 History ProAir RespiClick 2 puff INHALATION Q4H PRN 03/15/18 06/12/18 History cholecalciferol (vitamin D3) 2,000 unit PO QAM 03/15/18 06/12/18 History coenzyme Q10 [Co Q-10] 100 mg PO HS 03/15/18 06/12/18 History simvastatin 40 mg PO HS 03/15/18 06/12/18 History tamsulosin [Flomax] 0.4 mg PO DAILY 03/15/18 06/12/18 History Advair Diskus 1 puff INHALATION BID 06/12/18 06/12/18 History aspirin 81 mg PO DAILY 06/12/18 06/12/18 History celecoxib [Celebrex] 100 mg PO BID 15 Days #30 cap 06/12/18 Rx pantoprazole 40 mg PO QAM 30 Days #30 tab 06/12/18 Rx Patient History Medical History COPD (chronic obstructive pulmonary disease) Empyema of lung (Chronic) "right side s/p sleeve resection in 1992" Zenkers diverticulum (Chronic) "s/p repair" CAD (coronary artery disease) (Chronic) Pulmonary nodule (Chronic) BPH (benign prostatic hypertrophy) (Chronic) Dyslipidemia (Chronic) TIA (transient ischemic attack) (Chronic) "2004" Surgical History S/P bronchoscopy (Chronic) S/P knee replacement (Chronic) "right" H/O prostate biopsy (Chronic) S/P partial co[place] (Chronic[place] [facility] [place] H/O hernia repair (Chronic) H/O eye surgery (Chronic) S/P lobectomy of lung (Chronic) "1993 for empyema" Family History Other Family history non-contributory Heart disease Social History Preferred Language: Bulgarian Beliefs That Will Affect Care: None Current Living Situation: Spouse Other Information That Helps Us Care for You: No Feels Safe at Home: Yes Safety Concerns: Feels Safe At This Time Smoking Status: Former smoker Hx Alcohol Use: No Hx Substance Use: No Physical Exam Vital Signs (Past 24 Hours): Last Vital Signs Temp 36.5 C 06/12/18 06:50 Pulse 61 06/12/18 06:50 Resp 18 06/12/18 06:50 BP 136/67 06/12/18 06:50 Pulse Ox 96 06/12/18 06:50 Physical Exam: General: No acute distress, comfortable. HEENT: Head is normal. PERRLA. EOMI. Sclerae anicteric. Ears, nose and throat unremarkable. Mucous membranes moist. Neck: Normal carotid upstrokes, no bruits. No appreciable JVD. Lungs: Clear to auscultation bilaterally without rales, rhonchi or wheezes. Cardiac: Regular rate and rhythm. S1-S2 normal. No appreciable murmur, gallop or rub. Abdomen: Soft and nontender. Bowel sounds normal. No mass or organomegaly. No abdominal bruit. Extremities/vascular: Well perfused. No peripheral edema. Radial, DP and PT pulses 2+ bilaterally Skin: No rash or abnormal lesions. Normal turgor. Neurologic: Nonfocal Psychiatric: Affect appropriate. Alert and oriented. Results & Data Laboratory Results Laboratory Results - last 24 hr 06/12/18 06/12/18 06/12/18 00:20 00:20 03:19 WBC 5.52 RBC 4.88 Hgb 14.9 Hct 44.3 MCV 90.8 MCH 30.5 MCHC 33.6 RDW Std Deviation 43.4 RDW Coeff of Ora 13.2 Plt Count 252 MPV 9.6 Immature Gran % (Auto) 0.2 Neut % (Auto) 50.2 Lymph % (Auto) 37.3 [place] % (Auto) 8.0 Eos % (Auto) 3.6 Baso % (Auto) 0.7 Immature Gran # (Auto) 0.01 Neut # (Auto) 2.77 Lymph # (Auto) 2.06 [place] # (Auto) 0.44 Eos # (Auto) 0.20 Baso # (Auto) 0.04 Sodium 139 Potassium 4.0 Chloride 105 Carbon Dioxide 30 Anion Gap 4.0 BUN 26 H Creatinine 1.26 Est Cr Clr Drug Dosing 55.2 Est GFR ( Amer) 66.1 Est GFR (Non-Af Amer) 57.0 BUN/Creatinine Ratio 21.0 H Glucose 97 Calcium 8.8 Troponin I < 0.015 < 0.015 Triglycerides 183 H Cholesterol 179 LDL Cholesterol, Calc 99 VLDL Cholesterol, Calc 37 HDL Cholesterol 43 Cholesterol/HDL Ratio 4 06/12/18 09:06 WBC RBC Hgb Hct MCV MCH MCHC RDW Std Deviation RDW Coeff of [place]ra Plt Count MPV Immature Gran % (Auto) Neut % (Auto) Lymph % (Auto) [place] % (Auto) Eos % (Auto) Baso % (Auto) Immature Gran # (Auto) Neut # (Auto) Lymph # (Auto) [place] # (Auto) Eos # (Auto) Baso # (Auto) Sodium Potassium Chloride Carbon Dioxide Anion Gap BUN Creatinine Est Cr Clr Drug Dosing Est GFR ( Amer) Est GFR (Non-Af Amer) BUN/Creatinine Ratio Glucose Calcium Troponin I < 0.015 Triglycerides Cholesterol LDL Cholesterol, Calc VLDL Cholesterol, Calc HDL Cholesterol Cholesterol/HDL Ratio Diagnostic Findings Echo 06/11/[address] Barber- normal LV systolic function. No wall mot ion abnormalities. No significant valvular disease. ECG Additional Comments: EKG 06/11/17: Normal sinus rhythm, no acute ST changes Telemetry reviewed: Sinus rhythm
--- NOTE | 2018-06-12 10:45 | Hospitalist Progress Note ---
Date of Service June 12, 2018 Assessment & Plan (1) CAD (coronary artery disease): Presented with chest pain History of status post cardiac catheterization in 2016 showed some lesions in the diagonal and right coronary artery and was offered medical treatment Has been using diclofenac for knee pain Serial cardiac enzymes and EKG unremarkable Appreciate cardiology input and recommendation No more use of NSAID use and can use Celebrex and Tylenol for pain control We will discharge home this afternoon Hypertension Blood pressure is controlled Continue current medications Dyslipidemia Continue statin Osteoarthritis with knee pain Advised to quit NSAID use and diclofenac Will give Celebrex and Tylenol for pain control COPD No acute symptoms Will discharge home this afternoon Subjective He is a 72-year-old male with past medical history significant for hyperlipidemia, COPD, CAD, hypertension, BPH, degenerative disease of cervical disc, history of TIA, Zenker diverticulum, history of lung abscess, presents with chest pain. 06/12 The patient was seen and examined by me in telemetry unit He denies any more chest pain and/or palpitation His pain seems to be from the stomach and due to medications that he has been using He was evaluated by manufacturing design engineer and was advised that he can go home Physical Exam Vital Signs (Past 24 Hours): Last Vital Signs Temp 36.5 C 06/12/18 06:50 Pulse 61 06/12/18 06:50 Resp 18 06/12/18 06:50 BP 136/67 06/12/18 06:50 Pulse Ox 96 06/12/18 06:50 Physical Exam: No apparent distress at rest Constitutional: WD/WN, vitals as above Eyes: PERRL, conjunctivae normal, anicteric sclerae ENMT: external ear and nose normal, oropharynx normal Neck: trachea midline, no thyromegaly Respiratory: normal respiratory effort Auscultation: lungs clear to auscultation bilaterally Cardiovascular: Rate/Rhythm: regular rate and regular rhythm Heart Sounds: normal S1 and normal S2 Gastrointestinal (Abdomen): normal bowel sounds, soft, nontender, no hepatosplenomegaly Musculoskeletal: Knee: + limited ROM of knee (Moderately painful on movement) Neurologic: Alert, awake and oriented x3 Results & Data Laboratory Results Short CBC 06/12/18 Range/Units 00:20 WBC 5.52 (4.8-10.8) K/uL Hgb 14.9 (14.0-18.0) g/dL Hct 44.3 (42-52) % Plt Count 252 (130-400) K/uL BMP 06/12/18 00:20 Sodium 139 Potassium 4.0 Chloride 105 Carbon Dioxide 30 BUN 26 H Creatinine 1.26 Glucose 97 Calcium 8.8 Cardiac Enzymes 06/12/18 06/12/18 06/12/18 Range/Units 00:20 03:19 09:06 Troponin I < 0.015 < 0.015 < 0.015 (0-0.045) ng/ml Medications Administered Current Inpatient Medications Acetaminophen (Tylenol) 650 mg PO Q4H PRN PRN Reason: Pain or Fever Stop: 07/12/18 03:08 Al Hydrox/Mg Hydrox/Simethicone (Maalox) 15 ml PO Q4H PRN PRN Reason: Dyspepsia Stop: 07/12/18 03:08 Albuterol (Ventolin Hfa) 2 puffs INH Q4H PRN PRN Reason: SOB/WHEEZING Stop: 07/12/18 03:29 Aspirin (Ecotrin Ectab) 81 mg PO DAILY LAI Stop: 07/12/18 08:59 Last Admin: 06/12/18 09:01 Dose: 81 mg Documented by: Multivitamins/Minerals (Multivitamin W/ Minerals Tab) 1 tab PO DAILY LAI Stop: 07/12/18 08:59 Last Admin: 06/12/18 09:01 Dose: 1 tab Documented by: Nitroglycerin (Nitrostat) 0.4 mg SL UD PRN PRN Reason: Chest Pain Stop: 07/12/18 03:08 Ondansetron HCl (Zofran) 4 mg IV Q6H PRN PRN Reason: Nausea Stop: 07/12/18 03:08 Fluticasone/Salmeterol (Advair Diskus 250/50) 1 puffs INH BID LAI Stop: 07/12/18 08:59 Last Admin: 06/12/18 09:01 Dose: 1 puffs Documented by: Simvastatin (Zocor) 40 mg PO HS LAI Stop: 07/12/18 20:59 Tamsulosin HCl (Flomax) 0.4 mg PO DAILY LAI Stop: 07/12/18 08:59 Last Admin: 06/12/18 09:01 Dose: 0.4 mg Documented by: Vitamin D (Vitamin D3) 2,000 units PO QAM LAI Stop: 07/12/18 08:59 Last Admin: 06/12/18 09:01 Dose: 2,000 units Documented by:
[2018-06-12] MEDS ORDERED: CELECOXIB 100 MG CAP PO SCH (11:00)
[2018-06-12] MEDS ORDERED: PANTOprazole 40 MG TAB PO SCH (11:00)
--- NOTE | 2018-06-12 17:46 | Discharge Summary ---
Date of Service June 12, 2018 Admission HPI Per Admitting Provider DICTATED BY: Crescencio Pierce MD DATE OF ADMISSION: 06/12/2018 CHIEF COMPLAINT: Chest pain. HISTORY OF PRESENT ILLNESS: This is a 72-year-old male with past medical history significant for hyperlipidemia, COPD, CAD, hypertension, BPH, degenerative disease of cervical disc, history of TIA, Zenker diverticulum, history of lung abscess, presents with chest pain. The patient says he was going to sleep tonight and at the time when he was sleeping, lying on the bed, he felt , abdominal discomfort and also pressure-like severe pain in his throat region. He thinks mostly this is from GERD, but it bothered him and he took 3 aspirins and his brought him to the hospital. By the time they came to hospital, the pain was almost subsided. Currently, does not have any abdominal pain and does not have any chest pain. When he was having pain, he has also had some palpitations but denies unusual shortness of breath, or nausea or sweating, no dizziness. Currently, resting comfortable and hemodynamically stable. He is currently symptom free. Denies any headache, no blurred vision. No earache, no runny nose, no sore throat, no difficulty swallowing. No cough, no fever, no chills. Because of his lung condition, he gets short of breath when he climbs steps on and off. No abdominal pain. Appetite is okay. No feelings of hot or cold. Normal bowel and bladder movements. No blood in the stools or black stools, no hematuria, no burning micturition. No swelling of the legs. No rash, no easy bruising or bleeding Admission Exam Per Admitting Provider GENERAL: The patient is of moderate built, not in acute distress. VITAL SIGNS: Temperature 36.5, pulse 60, respiratory rate 16, blood pressure 137/74, oxygen 95% room air. HEENT: No pallor, no icterus. Pupils equal, round, and react to light. NECK: No JVD, no neck masses, no carotid bruit. CARDIOVASCULAR: S1, S2 heard, regular rate and rhythm, no murmur, no gallop. RESPIRATORY SYSTEM: Normal AP diameter. No accessory muscle use. No wheezing, no crackles. ABDOMEN: Soft, bowel sounds present. Nontender. No distention. CENTRAL NERVOUS SYSTEM: Cranial nerves II-XII grossly intact. Nonfocal. EXTREMITIES: No edema, no erythema. Principal Diagnosis Noncardiac chest pain Discharge Exam Constitutional WD/WN, vitals as above Eyes PERRL, conjunctivae normal, anicteric sclerae ENMT external ear and nose normal, oropharynx normal Neck trachea midline, no thyromegaly Respiratory normal respiratory effort Auscultation: lungs clear to auscultation bilaterally Cardiovascular Rate/Rhythm: regular rate and regular rhythm Heart Sounds: normal S1 and normal S2 Gastrointestinal (Abdomen) normal bowel sounds, soft, nontender, no hepatosplenomegaly Musculoskeletal Knee: + limited ROM of knee (Moderately painful on movement) Discharge Data Allergies Allergy/AdvReac Type Severity Reaction Status Date / Time hydrocodone Allergy Mild RASH, HIVES Verified 06/12/18 01:49 Consultations 06/12/18 01:49 ED Decision to Admit Stat 06/12/18 08:00 Consult Cardiology Routine Hospital Course (1) CAD (coronary artery disease): Presented with chest pain History of status post cardiac catheterization in 2016 showed some lesions in the diagonal and right coronary artery and was offered medical treatment Has been using diclofenac for knee pain Serial cardiac enzymes and EKG unremarkable Appreciate cardiology input and recommendation No more use of NSAID use and can use Celebrex and Tylenol for pain control We will discharge home this afternoon Hypertension Blood pressure is controlled Continue current medications Dyslipidemia Continue statin Osteoarthritis with knee pain Advised to quit NSAID use and diclofenac Will give Celebrex and Tylenol for pain control COPD No acute symptoms Will discharge home this afternoon Total Time Total Time Spent Total Time Spent (In Minutes): 35 minutes Total Time Includes: Examination of the Patient, Discharge Planning, Medication Reconciliation and Communication With Other Providers Discharge Plan Discharge Items Patient Disposition: Home - Self-Care Reason For Visit: CHEST PAIN Discharge Diagnosis: Noncardiac chest pain Condition: Good Discharge Goals: Decrease discomfort Activity: Resume your previous activity Non-emergency contact: Primary Care Provider Call non-emergency contact if: you have any medication questions Follow-up/Referrals: Andrew Childers D.O. [Primary Care Provider] - 06/16/18 10:45 am (Keep regular appointment with your supervisor pastry) Diet: Heart Healthy Addtl Provider Instructions: Try to avoid NSAID use Prescriptions: New pantoprazole 40 mg Tablet,Delayed Release (Dr/Ec) 40 mg PO QAM 30 Days Qty: 30 RF: 0 celecoxib [Celebrex] 100 mg Capsule 100 mg PO BID 15 Days Qty: 30 RF: 0 Continued simvastatin 40 mg tablet 40 mg PO HS RF: 0 tamsulosin [Flomax] 0.4 mg Capsule 0.4 mg PO DAILY RF: 0 Multivitamin 50 Plus Tablet 1 tab PO DAILY RF: 0 coenzyme Q10 [Co Q-10] 100 mg Capsule 100 mg PO HS RF: 0 cholecalciferol (vitamin D3) 2,000 unit Tablet 2,000 unit PO QAM RF: 0 ProAir RespiClick 90 mcg/actuation Aerosol Powdr Breath Activated 2 puff Inhalation Q4H PRN (Reason: Shortness Of Breath) RF: 0 aspirin 81 mg Tablet,Delayed Release (Dr/Ec) 81 mg PO DAILY RF: 0 Advair Diskus 250 mcg 1 puff Inhalation BID RF: 0 Discontinued diclofenac potassium 50 mg Tablet 50 mg PO TID RF: 0 Stand-Alone Forms: [facility] Discharge Orders: Discharge Order (Routine); Ordered 06/12/18 Ordered By: Aziza Villa Admission Data Admit Date/Time: 06/12/18 02:26 Attending Provider: Aziza Villa Admit Provider: Crescencio Pierce Primary Care Provider: Andrew Childers Other Providers: Crescencio Pierce ; Antione Noble Service: Telemetry Other Interventions: Discharge Summary Assessment (RN) Last Done: 06/12/18 13:38 DC Date/Time DO NOT enter until pt leaves facility: 06/12/18 13:56
[2018-06-12] MEDS ORDERED: SIMVASTATIN 40 MG TAB PO SCH (21:00)
== END 2018-06-12 13:56 | disposition home or self-care (01) ==
LOC: 2E 00:08 → ED 00:08 → 2E 02:47